=== PATIENT | female | born 1945 | race Caucasian/White ===

== ENCOUNTER 2022-10-11 18:40 | Inpatient (IN) | payer OTHER, MEDICAID ==
[~2022-10-11] VITALS: Ht 160 cm; Wt 98.0 kg
[2022-10-11 20:39] LABS: Basophils # (auto) 0 10 ^3/uL (0-0.2); Basophils % (auto) 0.7 % (0.0-2.0); Eosinophils # (auto) 0 10 ^3/uL (0-0.8); Eosinophils % (auto) 0.5 % (0.0-7.0); Hematocrit 39.3 % (36.0-46.0); Hemoglobin 13.4 g/dL (12.2-16.2); Lymphocytes # (auto) 0.7 10 ^3/uL (0.4-5.4); Lymphocytes % (auto) 14.6 % (10.0-50.0); Mean Corpuscular Hemoglobin 32.1 pg (28.0-32.0); Mean Corpuscular Hgb Conc. 34.1 g/dL (32.0-36.0); Mean Corpuscular Volume 94.2 fL (80.0-100.0); Monocytes # (auto) 0.7 10 ^3/uL (0-1.3); Monocytes % (auto) 14.8 % (0.0-12.0); Neutrophils # (auto) 3.2 10 ^3/uL (1.6-8.6); Neutrophils % (auto) 69.4 % (37.0-80.0); Nucleated Red Blood Cells % 0.1 %; Red Blood Cells 4.17 10^6/uL (4.0-5.20); Red Cell Distribution Width 13.6 % (11.8-14.3); White Blood Cell 4.6 10^3/uL (4.4-10.8)
[2022-10-11] MEDS ORDERED: HYDROcodone-ACET 10/325MG TAB PO ONE (20:45)
[2022-10-11] MEDS ORDERED: ONDANSETRON ODT 4 MG TAB PO ONE (20:45)
[2022-10-11 21:00] LABS: Albumin 3.4 g/dL (3.4-5.0); Calcium 8.1 mg/dL (8.5-10.1)
[2022-10-11 21:04] LABS: BUN/Creatinine Ratio 17.3; Bilirubin, Total 0.7 mg/dL (0.2-1.0); Total Protein 6.9 g/dL (6.4-8.2)
[2022-10-12] MEDS ORDERED: HYDROcodone-ACET 5/325MG TAB PO PRN (05:45)
[2022-10-12] MEDS ORDERED: TEMAZEPAM 15 MG CAP PO PRN (05:45)
[2022-10-12] MEDS ORDERED: ONDANSETRON HCL 4 MG/2 ML VIAL IV PRN (05:45)
[2022-10-12] MEDS ORDERED: ALBUTEROL SULF 2.5 MG/0.5ML(0.5%) NEB SOLN NEB PRN (05:45)
[2022-10-12] MEDS: MULTIPLE VITAMIN TAB PO SCH (10:18)
[2022-10-12] MEDS: ASCORBIC ACID 500 MG TAB PO SCH ×2 (10:18→22:38)
[2022-10-12] MEDS: ZINC SULFATE 220mg CAP or TAB PO SCH (10:18)
[2022-10-12] MEDS ORDERED: CHOLECALCIFEROL (VITD3) 2,000 UNIT CAP/TAB PO ONE (12:00)
[2022-10-12] MEDS: AZITHROMYCIN 500MG/ 250ML 250 ML IV SCH (13:27)
[2022-10-12] MEDS: ENOXAPARIN SOD 40 MG/0.4 ML SYRINGE SC SCH (13:46)
[2022-10-12] MEDS: DexAMETHasone SOD PHOS 10MG/1ML VIAL INJ IV SCH (13:46)
[2022-10-12] MEDS: cefTRIAXone 1GM/50ML D5W 50 ML IV SCH (15:14)
[2022-10-12 22:00] VITALS: BP 124/65
[2022-10-13 05:00] VITALS: BP 123/58
[2022-10-13 05:33] LABS: Basophils # (auto) 0 10 ^3/uL (0-0.2); Basophils % (auto) 0.2 % (0.0-2.0); Eosinophils # (auto) 0 10 ^3/uL (0-0.8); Hemoglobin 12.3 g/dL (12.2-16.2); Lymphocytes # (auto) 0.7 10 ^3/uL (0.4-5.4); Lymphocytes % (auto) 18.5 % (10.0-50.0); Mean Corpuscular Hemoglobin 31.6 pg (28.0-32.0); Mean Corpuscular Hgb Conc. 34.2 g/dL (32.0-36.0); Mean Corpuscular Volume 92.3 fL (80.0-100.0); Monocytes # (auto) 0.5 10 ^3/uL (0-1.3); Monocytes % (auto) 13.2 % (0.0-12.0); Neutrophils # (auto) 2.7 10 ^3/uL (1.6-8.6); Neutrophils % (auto) 68.1 % (37.0-80.0); Red Cell Distribution Width 13.2 % (11.8-14.3)
[2022-10-13 05:50] LABS: BUN/Creatinine Ratio 25.8; Calcium 8.1 mg/dL (8.5-10.1); Potassium 4.1 mmol/L (3.5-5.1)
[2022-10-13 05:53] LABS: Bilirubin, Total 0.5 mg/dL (0.2-1.0); Total Protein 6.5 g/dL (6.4-8.2)
[2022-10-13 09:00] VITALS: BP 113/68
[2022-10-13] MEDS: ENOXAPARIN SOD 40 MG/0.4 ML SYRINGE SC SCH (11:38)
[2022-10-13] MEDS: ZINC SULFATE 220mg CAP or TAB PO SCH (11:38)
[2022-10-13] MEDS: cefTRIAXone 1GM/50ML D5W 50 ML IV SCH (11:39)
[2022-10-13] MEDS: MULTIPLE VITAMIN TAB PO SCH (11:39)
[2022-10-13] MEDS: ASCORBIC ACID 500 MG TAB PO SCH ×2 (11:39→21:05)
[2022-10-13] MEDS: CHOLECALCIFEROL (VITD3) 2,000 UNIT CAP/TAB PO SCH (11:39)
[2022-10-13] MEDS: AZITHROMYCIN 500MG/ 250ML 250 ML IV SCH (11:39)
[2022-10-13] MEDS: DexAMETHasone SOD PHOS 10MG/1ML VIAL INJ IV SCH (11:40)
[2022-10-13 12:34] VITALS: BP 112/48
[2022-10-13 17:00] VITALS: BP 131/62
[2022-10-13 22:00] VITALS: BP 148/73
[2022-10-14 05:00] VITALS: BP 145/75
[2022-10-14 06:22] LABS: % Iron Saturation 18.7 % (15-50)
[2022-10-14] MEDS: ZINC SULFATE 220mg CAP or TAB PO SCH (08:37)
[2022-10-14] MEDS: CHOLECALCIFEROL (VITD3) 2,000 UNIT CAP/TAB PO SCH (08:37)
[2022-10-14] MEDS: ASCORBIC ACID 500 MG TAB PO SCH ×2 (08:38→21:25)
[2022-10-14] MEDS: MULTIPLE VITAMIN TAB PO SCH (08:38)
[2022-10-14] MEDS: ENOXAPARIN SOD 40 MG/0.4 ML SYRINGE SC SCH (08:39)
[2022-10-14] MEDS: cefTRIAXone 1GM/50ML D5W 50 ML IV SCH (08:39)
[2022-10-14] MEDS: DexAMETHasone SOD PHOS 10MG/1ML VIAL INJ IV SCH (08:39)
[2022-10-14] MEDS: AZITHROMYCIN 500MG/ 250ML 250 ML IV SCH (08:39)
[2022-10-14 08:48] VITALS: BP 136/71
[2022-10-14] MEDS ORDERED: ASCO500T11 PO (12:32)
[2022-10-14] MEDS ORDERED: DEXA6TAB6 PO ×2 (12:33)
[2022-10-14] MEDS ORDERED: ZINC220C10 PO (12:33)
[2022-10-14] MEDS ORDERED: CHOL1CAP47 PO (12:33)
[2022-10-14 13:00] VITALS: BP 128/80
[2022-10-14 17:00] VITALS: BP 131/75
[2022-10-14 22:00] VITALS: BP 107/60
[2022-10-15] MEDS: ACETAMINOPHEN 325 MG TAB PO PRN (00:17)
[2022-10-15 05:00] VITALS: BP 121/55
[2022-10-15 09:00] VITALS: BP 127/80
[2022-10-15] MEDS: ZINC SULFATE 220mg CAP or TAB PO SCH (09:31)
[2022-10-15] MEDS: cefTRIAXone 1GM/50ML D5W 50 ML IV SCH (09:31)
[2022-10-15] MEDS: DexAMETHasone SOD PHOS 10MG/1ML VIAL INJ IV SCH (09:31)
[2022-10-15] MEDS: ASCORBIC ACID 500 MG TAB PO SCH ×2 (09:32→21:59)
[2022-10-15] MEDS: AZITHROMYCIN 500MG/ 250ML 250 ML IV SCH (09:32)
[2022-10-15] MEDS: MULTIPLE VITAMIN TAB PO SCH (09:32)
[2022-10-15] MEDS: CHOLECALCIFEROL (VITD3) 2,000 UNIT CAP/TAB PO SCH (09:32)
[2022-10-15 11:36] LABS: Hepatitis A Ab IgM Negative
[2022-10-15 11:37] LABS: Hepatitis B Core IgM Negative
[2022-10-15 11:38] LABS: Hepatitis C Antibody Negative (Negative)
[2022-10-15 11:42] LABS: Hepatitis C Antibody Negative (Negative)
[2022-10-15 13:00] VITALS: BP 126/74
[2022-10-15 17:09] VITALS: BP 141/85
[2022-10-15 22:00] VITALS: BP 146/80
[2022-10-16 05:00] VITALS: BP 136/72
[2022-10-16] MEDS: ZINC SULFATE 220mg CAP or TAB PO SCH (08:23)
[2022-10-16] MEDS: MULTIPLE VITAMIN TAB PO SCH (08:23)
[2022-10-16] MEDS: CHOLECALCIFEROL (VITD3) 2,000 UNIT CAP/TAB PO SCH (08:23)
[2022-10-16] MEDS: ASCORBIC ACID 500 MG TAB PO SCH ×2 (08:23→22:17)
[2022-10-16] MEDS: AZITHROMYCIN 500MG/ 250ML 250 ML IV SCH (08:24)
[2022-10-16] MEDS: DexAMETHasone SOD PHOS 10MG/1ML VIAL INJ IV SCH (08:24)
[2022-10-16] MEDS: cefTRIAXone 1GM/50ML D5W 50 ML IV SCH (08:25)
[2022-10-16 09:00] VITALS: BP 121/77
[2022-10-16 16:34] VITALS: BP 145/59
[2022-10-16 22:00] VITALS: BP 120/71
[2022-10-17 05:00] VITALS: BP 160/85
[2022-10-17 08:00] VITALS: BP_SYST 124; BP_DIAS 77; BP_DIAS 79
[2022-10-17] MEDS: AZITHROMYCIN 500MG/ 250ML 250 ML IV SCH (10:00)
[2022-10-17] MEDS: CHOLECALCIFEROL (VITD3) 2,000 UNIT CAP/TAB PO SCH (10:33)
[2022-10-17] MEDS: MULTIPLE VITAMIN TAB PO SCH (10:33)
[2022-10-17] MEDS: ASCORBIC ACID 500 MG TAB PO SCH ×2 (10:33→21:11)
[2022-10-17] MEDS: ZINC SULFATE 220mg CAP or TAB PO SCH (10:34)
[2022-10-17] MEDS: DexAMETHasone SOD PHOS 10MG/1ML VIAL INJ IV SCH (10:34)
[2022-10-17] MEDS: cefTRIAXone 1GM/50ML D5W 50 ML IV SCH (10:35)
[2022-10-17 12:00] VITALS: BP 132/75
[2022-10-17 16:00] VITALS: BP 137/80
[2022-10-17 20:00] VITALS: BP 114/72
[2022-10-17 22:00] VITALS: BP 114/72
[2022-10-18] VITALS (7 sets, daily range): BP systolic 121–149; BP diastolic 68–84
[2022-10-18 06:46] LABS: Basophils # (auto) 0 10 ^3/uL (0-0.2); Basophils % (auto) 0.3 % (0.0-2.0); Eosinophils # (auto) 0 10 ^3/uL (0-0.8); Eosinophils % (auto) 0.6 % (0.0-7.0); Hematocrit 39.1 % (36.0-46.0); Hemoglobin 13.8 g/dL (12.2-16.2); Lymphocytes # (auto) 1.3 10 ^3/uL (0.4-5.4); Lymphocytes % (auto) 15.7 % (10.0-50.0); Mean Corpuscular Hemoglobin 31.8 pg (28.0-32.0); Mean Corpuscular Hgb Conc. 35.3 g/dL (32.0-36.0); Mean Corpuscular Volume 90.2 fL (80.0-100.0); Monocytes % (auto) 12.7 % (0.0-12.0); Neutrophils # (auto) 5.7 10 ^3/uL (1.6-8.6); Neutrophils % (auto) 70.7 % (37.0-80.0); Nucleated Red Blood Cells % 0.1 %; Red Blood Cells 4.34 10^6/uL (4.0-5.20); Red Cell Distribution Width 13.4 % (11.8-14.3)
[2022-10-18 07:00] LABS: BUN/Creatinine Ratio 36.8; Calcium 8.5 mg/dL (8.5-10.1); Potassium 4.5 mmol/L (3.5-5.1)
[2022-10-18] MEDS: CHOLECALCIFEROL (VITD3) 2,000 UNIT CAP/TAB PO SCH (09:46)
[2022-10-18] MEDS: ASCORBIC ACID 500 MG TAB PO SCH ×2 (09:46→21:37)
[2022-10-18] MEDS: MULTIPLE VITAMIN TAB PO SCH (09:46)
[2022-10-18] MEDS: DexAMETHasone SOD PHOS 10MG/1ML VIAL INJ IV SCH (09:46)
[2022-10-18] MEDS: ZINC SULFATE 220mg CAP or TAB PO SCH (09:46)
[2022-10-18] MEDS: cefTRIAXone 1GM/50ML D5W 50 ML IV SCH (09:47)
[2022-10-18] MEDS: AZITHROMYCIN 500MG/ 250ML 250 ML IV SCH (11:01)
[2022-10-19] VITALS (7 sets, daily range): BP systolic 111–132; BP diastolic 60–88
[2022-10-19] MEDS: DexAMETHasone SOD PHOS 10MG/1ML VIAL INJ IV SCH (10:11)
[2022-10-19] MEDS: cefTRIAXone 1GM/50ML D5W 50 ML IV SCH (10:11)
[2022-10-19] MEDS: ZINC SULFATE 220mg CAP or TAB PO SCH (10:12)
[2022-10-19] MEDS: CHOLECALCIFEROL (VITD3) 2,000 UNIT CAP/TAB PO SCH (10:12)
[2022-10-19] MEDS: ASCORBIC ACID 500 MG TAB PO SCH ×2 (10:12→21:57)
[2022-10-19] MEDS: MULTIPLE VITAMIN TAB PO SCH (10:12)
[2022-10-20 05:00] VITALS: BP 148/88
[2022-10-20 09:00] VITALS: BP 119/66
[2022-10-20] MEDS: DexAMETHasone SOD PHOS 10MG/1ML VIAL INJ IV SCH (10:06)
[2022-10-20] MEDS: ZINC SULFATE 220mg CAP or TAB PO SCH (10:07)
[2022-10-20] MEDS: MULTIPLE VITAMIN TAB PO SCH (10:07)
[2022-10-20] MEDS: CHOLECALCIFEROL (VITD3) 2,000 UNIT CAP/TAB PO SCH (10:08)
[2022-10-20] MEDS: ASCORBIC ACID 500 MG TAB PO SCH ×2 (10:08→21:18)
[2022-10-20 12:59] VITALS: BP 127/71
[2022-10-20 16:22] VITALS: BP 123/69
[2022-10-20] MEDS: ACETAMINOPHEN 325 MG TAB PO PRN (21:18)
[2022-10-20 22:21] VITALS: BP 122/69
[2022-10-21 04:57] VITALS: BP 135/76
[2022-10-21 08:31] VITALS: BP 140/92
[2022-10-21] MEDS: ZINC SULFATE 220mg CAP or TAB PO SCH (09:36)
[2022-10-21] MEDS: CHOLECALCIFEROL (VITD3) 2,000 UNIT CAP/TAB PO SCH (09:36)
[2022-10-21] MEDS: DexAMETHasone SOD PHOS 10MG/1ML VIAL INJ IV SCH (09:37)
[2022-10-21] MEDS: MULTIPLE VITAMIN TAB PO SCH (09:38)
[2022-10-21] MEDS: ASCORBIC ACID 500 MG TAB PO SCH ×2 (09:38→21:16)
[2022-10-21 13:09] VITALS: BP 138/71
[2022-10-21 16:36] VITALS: BP 120/69
[2022-10-21 20:00] VITALS: BP 124/72
[2022-10-21 22:00] VITALS: BP 124/72
[2022-10-22 05:00] VITALS: BP 125/70
[2022-10-22 08:20] VITALS: BP 138/87
[2022-10-22 08:27] VITALS: BP 138/87
[2022-10-22] MEDS: DexAMETHasone SOD PHOS 10MG/1ML VIAL INJ IV SCH (10:15)
[2022-10-22] MEDS: ASCORBIC ACID 500 MG TAB PO SCH ×2 (10:16→22:22)
[2022-10-22] MEDS: ZINC SULFATE 220mg CAP or TAB PO SCH (10:16)
[2022-10-22] MEDS: MULTIPLE VITAMIN TAB PO SCH (10:16)
[2022-10-22] MEDS: CHOLECALCIFEROL (VITD3) 2,000 UNIT CAP/TAB PO SCH (10:16)
[2022-10-22 13:01] VITALS: BP 137/75
[2022-10-22 16:35] VITALS: BP 127/75
[2022-10-22 22:00] VITALS: BP 122/74
[2022-10-23 05:00] VITALS: BP 131/69
[2022-10-23 08:00] VITALS: BP 130/73
[2022-10-23] MEDS: MULTIPLE VITAMIN TAB PO SCH (10:48)
[2022-10-23] MEDS: DexAMETHasone SOD PHOS 10MG/1ML VIAL INJ IV SCH (10:48)
[2022-10-23] MEDS: CHOLECALCIFEROL (VITD3) 2,000 UNIT CAP/TAB PO SCH (10:48)
[2022-10-23] MEDS: ASCORBIC ACID 500 MG TAB PO SCH ×2 (10:48→22:14)
[2022-10-23] MEDS: ZINC SULFATE 220mg CAP or TAB PO SCH (10:49)
[2022-10-23 12:37] VITALS: BP 122/69
[2022-10-23 17:01] VITALS: BP 129/73
[2022-10-23 22:00] VITALS: BP 132/86
[2022-10-24 05:00] VITALS: BP 108/55
[2022-10-24 08:00] VITALS: BP 104/70
[2022-10-24 09:00] VITALS: BP 104/70
[2022-10-24] MEDS: CHOLECALCIFEROL (VITD3) 2,000 UNIT CAP/TAB PO SCH (09:22)
[2022-10-24] MEDS: DexAMETHasone SOD PHOS 10MG/1ML VIAL INJ IV SCH (09:22)
[2022-10-24] MEDS: ASCORBIC ACID 500 MG TAB PO SCH ×2 (09:23→21:26)
[2022-10-24] MEDS: MULTIPLE VITAMIN TAB PO SCH (09:23)
[2022-10-24] MEDS: ZINC SULFATE 220mg CAP or TAB PO SCH (09:23)
[2022-10-24 13:00] VITALS: BP 115/69
[2022-10-24 17:00] VITALS: BP 127/76
[2022-10-24 22:00] VITALS: BP 121/53
[2022-10-25 05:00] VITALS: BP 120/70
[2022-10-25 08:00] VITALS: BP 104/70
[2022-10-25] MEDS: ZINC SULFATE 220mg CAP or TAB PO SCH (08:52)
[2022-10-25] MEDS: CHOLECALCIFEROL (VITD3) 2,000 UNIT CAP/TAB PO SCH (08:52)
[2022-10-25] MEDS: MULTIPLE VITAMIN TAB PO SCH (08:52)
[2022-10-25] MEDS: ASCORBIC ACID 500 MG TAB PO SCH ×2 (08:53→21:32)
[2022-10-25] MEDS: DexAMETHasone SOD PHOS 10MG/1ML VIAL INJ IV SCH (08:53)
[2022-10-25 09:00] VITALS: BP 141/89
[2022-10-25 12:35] VITALS: BP 129/70
[2022-10-25 16:32] VITALS: BP 150/83
[2022-10-25 22:00] VITALS: BP 130/75
[2022-10-26 05:00] VITALS: BP 124/64
[2022-10-26] MEDS: ZINC SULFATE 220mg CAP or TAB PO SCH (08:59)
[2022-10-26] MEDS: CHOLECALCIFEROL (VITD3) 2,000 UNIT CAP/TAB PO SCH (08:59)
[2022-10-26] MEDS: ASCORBIC ACID 500 MG TAB PO SCH (09:00)
[2022-10-26] MEDS: MULTIPLE VITAMIN TAB PO SCH (09:00)
[2022-10-26] MEDS: DexAMETHasone SOD PHOS 10MG/1ML VIAL INJ IV SCH (09:00)
[2022-10-26 09:07] VITALS: BP 142/83
[2022-10-26 12:48] VITALS: BP 130/81
== END 2022-10-26 14:10 | disposition home or self-care (01) | DRG 177 ==
LOC: EDBD 18:40 → ER 18:42 → OVERFLOW 10-12 05:34 → CENTRAL 10-12 18:04
PROVIDERS: ADMIT Nurse Practitioner; ATTEND Internal Medicine Geriatric Medicine
DX: U07.1 COVID-19 (principal); J12.82 Pneumonia due to coronavirus disease 2019; J96.01 Acute respiratory failure with hypoxia; N17.9 Acute kidney failure, unspecified; J98.11 Atelectasis; Z68.41 Body mass index [BMI] 40.0-44.9, adult; K74.60 Unspecified cirrhosis of liver; G89.4 Chronic pain syndrome; N18.9 Chronic kidney disease, unspecified; E83.51 Hypocalcemia; D69.6 Thrombocytopenia, unspecified; K80.20 Calculus of gallbladder without cholecystitis without obstruction; Z78.9 Other specified health status; E66.01 Morbid (severe) obesity due to excess calories; R74.8 Abnormal levels of other serum enzymes; J06.9 Acute upper respiratory infection, unspecified
CPT/HCPCS: 36415; 70450; 71250; 71275; 74176; 80048; 80053; 80074; 82140; 82728; 83540; 83550; 84484; 85025; 85379; 85610; 86038; 86141; 86803; 87340; 87426; 87804; 93005; 96365; 97110; 97116; 97163; 97530; G0378; J0696; J1100; Q0162

== ENCOUNTER 2025-07-15 11:19 | Inpatient (IN) | payer MEDICARE, MEDICAID ==
[~2025-07-15] VITALS: Ht 162.6 cm; Wt 123.0 kg
[~2025-07-15 11:19] MED LIST: ASCO500T11 PO; CHOL1CAP47 PO; ZINC220C10 PO
--- NOTE | 2025-07-15 12:00 | ED.PDOC ---
General HPI Comments 80 y/o F, BIBA, presents to the ED for CC of flank pain. Patient states, she began to experience right-sided "shooting" flank pain sudden onset, today (07/15/25). Patient relays, that she may have accidently hit something but is unsure. Patient denies recent lifting, fall, fever, frequency, urgency, or hematuria. Chief Complaint: Flank Pain Time Seen by MD: 11:50 Reviewed notes: Nurses Notes, Business Intelligence Engineer Notes, Medications, Allergies Allergies: Coded Allergies: Penicillins (Verified Allergy, Severe, 07/15/25) No Known Drug Allergy (Verified Allergy, Unknown, 10/11/22) Home Meds Active Scripts Zinc Sulfate (Zinc) 220 Mg Cap, 220 MG PO Q24H for 15 Days, #15 CAP Prov:ELVA BOYCE MD 10/14/22 Cholecalciferol (Vitamin D3 Super Strength) 2,000 Unit Cap, 2000 UNIT PO Q24H for 15 Days, #15 CAP Prov:ELVA BOYCE MD 10/14/22 Ascorbic Acid (VITAMIN C TABLET) 500 Mg Tb, 1 TAB PO BID, #30 TAB Prov:ELVA BOYCE MD 10/14/22 Information Source: Patient, Emergency Med Personnel Mode of Arrival: EMS Severity: Moderate Timing: Minutes Duration: Since onset Prehospital treatment: None Onset: Spontaneous Location: (R) Flank Modifying factors: None associated signs and symptoms: Flank Pain, Back Pain Past Medical History PAST MEDICAL HISTORY: Denies Surgical History: Denies all surgeries MEDICAL PSYCHOTHERAPIST History: Denies all MEDICAL PSYCHOTHERAPIST Hx Family History Family History: Reviewed,noncontributory to illness Social History Smoker: Non-Smoker Alcohol: Denies ETOH Use Drugs: Denies Drug Use Lives In: Home Constitutional: denies: chills, diaphoresis, fatigue, fever, malaise, sweats, weakness, others EENTM: denies: blurred vision, double vision, ear bleeding, ear discharge, ear drainage, ear pain, ear ringing, eye pain, eye redness, hearing loss, mouth pain, mouth swelling, nasal discharge, nose bleeding, nose congestion, nose pain, photophobia, tearing, throat pain, throat swelling, voice changes, others Respiratory: denies: cough, hemoptysis, orthopnea, SOB at rest, shortness of breath, SOB with excertion, stridor, wheezing, others Cardiovascular: denies: chest pain, dizzy spells, diaphoresis, Dyspnea on exertion, edema, irregular heart beat, left arm pain, lightheadedness, palpitations, PND, syncope, others Gastrointestinal: denies: abdomen distended, abdominal pain, blood streaked bowels, constipated, diarrhea, dysphagia, difficulty swallowing, hematemesis, melena, nausea, poor appetite, poor fluid intake, rectal bleeding, rectal pain, vomiting, others Genitourinary: reports: flank pain; denies: abnormal vagina bleeding, burning, dyspareunia, dysuria, frequency, hematuria, incontinence, pain, , vagina discharge, urgency, others Neurological: denies: dizziness, fainting, headache, left sided numbness, left sided weakness, numbness, paresthesia, pre-existing deficit, right sided numbness, right sided weakness, seizure, speech problems, tingling, tremors, weakness, others Musculoskeletal: reports: back pain; denies: gout, joint pain, joint swelling, muscle pain, muscle stiffness, neck pain, others Integumetry: denies: bruises, change in color, change in hair/nails, dryness, l aceration, lesions, lumps, rash, wounds, others Allergic/Immunocompromised: denies: Difficulty Healing, Frequent Infections, Hives, Itching, others Hematologic/Lymphatic: denies: anemia, blood clots, easy bleeding, easy bruising, swollen glands, others Endocrine: denies: excessive hunger, excessive sweating, excessive thirst, excessive urination, flushing, intolerance to cold, intolerance to heat, unexplained weight gain, unexplained weight loss, others Psychiatric: denies: anxiety, bipolar disorder, depression, hopeless, panic disorder, schizophrenia, sleepless, suicidal, others All Other Systems: Reviewed and Negative Physical Exam General Appearance: No Apparent Distress, Normal HEENT: Normal ENT Inspection, Pharynx Normal Neck: Full Range of Motion, Non-Tender, Normal, Normal Inspection Respiratory: Chest Non-Tender, Lungs Clear, No Accessory Muscle Use, No Respiratory Distress, Normal Breath Sounds Cardiovascular: No Edema, No Murmur, No Gallop, Normal Peripheral Pulses, Regular Rate/Rhythm Breast Exam: Deferred Gastrointestinal: No Organomegaly, Non Tender, No Pulsatile Mass, Normal Bowel Sounds, Soft Genitalia: Deferred Pelvic: Deferred Rectal: Deferred Extremities: No calf tenderness, Normal capillary refill, Normal inspection, Normal range of motion, Non-tender, No pedal edema Musculoskeletal : Location: Right Extremity Location: Back (thoracic spine ) Apperance: Normal, Tenderness: Mild Neurologic: Alert, brake machine operator II-XII nml as Tested, No Motor Deficits, Normal Affect, Normal Mood, No Sensory Deficits Cerebellar Function: Normal Reflexes: Normal Skin: Dry, Normal Color, Warm Lymphatic: No Adenopathy Was a procedure done? Was a procedure done?: No Differential Diagnosis Kidney stone (Female): Musculoskeletal pain, Urinary obstruction, Urolithiasis X-Ray, Labs, Meds, VS Vital Signs Date Time Temp Pulse Resp B/P (MAP) Pulse Ox O2 Delivery O2 Flow Rate FiO2 07/15/25 17:00 99.8 69 20 161/78 (105) 97 99.8 07/15/25 12:39 97 16 97 Room Air 07/15/25 12:39 98.7 72 16 114/61 (78) 97 98.7 07/15/25 11:24 97.8 71 18 147/53 96 97.8 Lab Test 07/15/25 12:56 Range/Units White Blood Count 5.5 4.4-10.8 10^3/uL Red Blood Count 4.02 4.0-5.20 10^6/uL Hemoglobin 13.2 12.2-16.2 g/dL Hematocrit 38.9 36.0-46.0 % Mean Corpuscular Volume 96.8 80.0-100.0 fL Mean Corpuscular Hemoglobin 32.8 H 28.0-32.0 pg Mean Corpuscular Hemoglobin Concent 33.9 32.0-36.0 g/dL Red Cell Distribution Width 14.3 11.8-14.3 % Platelet Count 104 L 140-450 10^3/uL Mean Platelet Volume 8.9 6.9-10.8 fL Neutrophils (%) (Auto) 79.4 37.0-80.0 % Lymphocytes (%) (Auto) 11.8 10.0-50.0 % Monocytes (%) (Auto) 7.1 0.0-12.0 % Eosinophils (%) (Auto) 0.6 0.0-7.0 % Basophils (%) (Auto) 1.1 0.0-2.0 % Neutrophils # (Auto) 4.4 1.6-8.6 10 ^3/uL Lymphocytes # (Auto) 0.7 0.4-5.4 10 ^3/uL Monocytes # (Auto) 0.4 0-1.3 10 ^3/uL Eosinophils # (Auto) 0 0-0.8 10 ^3/uL Basophils # (Auto) 0.1 0-0.2 10 ^3/uL Nucleated Red Blood Cells 0.0 % Sodium Level 143 136-145 mmol/L Potassium Level 4.3 3.5-5.1 mmol/L Chloride Level 106 98-107 mmol/L Carbon Dioxide Level 30 20-31 mmol/L Anion Gap 7 5-15 Blood Urea Nitrogen 15 9-23 mg/dL Creatinine 0.87 0.550-1.02 mg/dL Glomerular Filtration Rate Calc 68 >90 mL/min BUN/Creatinine Ratio 17.2 10.0-20.0 Serum Glucose 127 H 74-106 mg/dL Calcium Level 9.3 8.7-10.4 mg/dL Current Medications Medications (Trade) Dose Ordered Sig/Jake Route Start Time Stop Time Status Last Admin Acetaminophen/ Hydrocodone Bitart (Bovill 5/325MG Tab) 1 tab ONCE ONCE PO 07/15/25 12:15 07/15/25 12:16 DC 07/15/25 12:59 [place] [id number] Ph: [phone] DIAGNOSTIC IMAGING Diagnostic Imaging Report : [id number] Signed PATIENT: ESTUARDO PEREZ ACCT: [id number] UNIT: [id number] : 1945 LOC: ER ROOM / BED: / AGE / SEX: 80 / F ADM STATUS: REG ER SERVICE 1207 ORDERING PHYSICIAN: KENDRA JAMA MD PROCEDURE(s): ABPL - CT AB PEL WO CON-NO ORAL OR IV REASON: right flank pain ORDER NUMBER(s): [id number], ACCESSION NUMBER(s): [id number] Exam: CT CT AB PEL WO CON-NO ORAL OR IV History: right flank pain Comparison Study: None TECHNIQUE: Multidetector CT of the abdomen was performed from lung bases to pubic symphysis. Imaging was performed without IV contrast. Axial, coronal and sagittal multiplanar reformats were obtained from the axial data set by the technologist. Radiation Dose Information: CT Dose: CTDI volume is 25.8 mGy. Dose-length product is 1241 mGy*cm FINDINGS: Evaluation of solid organs is limited due to lack of intravenous contrast use. Findings: Lung Bases: No acute or significant lung base finding. Normal heart size. No pleural or pericardial effusion. Liver: Liver is nodular in contour. No focal lesions. Gallbladder and Biliary Tree: Cholelithiasis. Spleen: Unremarkable Pancreas: The pancreas is grossly normal in appearance. Adrenal Glands: Unremarkable Kidneys: Bilateral renal cysts. No evidence of hydronephrosis or renal calculi. Bladder: Grossly unremarkable for degree of distention. Bowel: The stomach is grossly normal in appearance. Small bowel and colon are normal in caliber and distribution. The appendix is not visualized; however, no secondary findings of acute appendicitis identified. Ascites: Absent Lymphadenopathy: No mesenteric, retroperitoneal or periportal lymphadenopathy. Abdominal Wall and Mesentery: Unremarkable. Vasculature: The visualized abdominal aorta is normal in size and caliber. Evaluation of abdominal and pelvic vessels is limited due to lack of intravenous contrast. Pelvic Organs: Unremarkable Musculoskeletal: No aggressive focal bony lesions, acute fractures or dislocation. Soft tissues: Unremarkable IMPRESSION: 1. Cholelithiasis 2. Bilateral renal cysts 3. Radiation optimization: All CT scans at this facility use at least one of these dose optimization techniques: automated exposure control mA and/or kV adjustment per patient size (includes targeted exams where dose is matched to clinical indication) or iterative reconstruction. ATED BY: LING WARREN MD DICTATED DATE/TIME: 07/15/25 1303 SIGNED BY: LING WARREN MD SIGNED DATE/TIME: 07/15/25 1303 CC: Time of 1ST Reevaluation: 12:10 Reevaluation 1ST: Unchanged Patient Education/Counseling: Diagnosis, Treatment Family Education/Counseling: No Family Present Comments This is a patient who presents with right flank pain right upper quadrant pain. She has cholelithiasis. There was no evidence of cholecystitis or obstruction. However patient's pain is uncontrolled and she an elderly who lives alone and she does not feel comfortable going home patient is unable to keep anything down by mouth. Patient will be admitted for further symptomatic treatment as well as evaluation treatment for the biliary colic due to cholelithiasis SEPSIS Sepsis Screen Date sepsis recognized/suspect: Jul 15, 2025 Time Sepsis recognized/suspect: 1126 Recent Procedure: No On Antibiotic Therapy: No Respiratory Rate >20: No Heart Rate >90: No Temp<36 C (96.8 F) or >38.3 C: No SBP <90 or MAP <65 mmHG: No New Acute Mental Status Change: No Is the patient on CPAP, BIPAP,: No Physician Orders Urinalysis (07/15/25 12:07) Ct Ab Pel Wo Con-No Oral Or Iv (07/15/25 12:07) Vital Signs Date Time Temp Pulse Resp B/P (MAP) Pulse Ox O2 Delivery O2 Flow Rate FiO2 07/15/25 17:00 99.8 69 20 161/78 (105) 97 99.8 07/15/25 12:39 97 16 97 Room Air 07/15/25 12:39 98.7 72 16 114/61 (78) 97 98.7 07/15/25 11:24 97.8 71 18 147/53 96 97.8 Laboratory Tests Test 07/15/25 12:56 White Blood Count 5.5 10^3/uL (4.4-10.8) Medications Medications Dose Ordered Sig/Jake Route Start Time Stop Time Status Last Admin Dose Admin Acetaminophen/ Hydrocodone Bitart 1 tab ONCE ONCE PO 07/15/25 12:15 07/15/25 12:16 DC 07/15/25 12:59 Departure 1 Departure Time of Disposition: 17:54 Impression: Primary Impression: Intractable abdominal pain Additional Impressions: Biliary colic Cholelithiasis Disposition: ADMITTED INPATIENT Admit to: Med Surg Condition: Stable Discharged With: Self Critical Care Note Critical Care Time?: No Stability Stability form required: No Heart Score Heart Score: Heart Score Response (Comments) Value History N/A 0 EKG N/A 0 Age N/A 0 Risk Factors N/A 0 Troponin N/A 0 Total 0 I personally scribed for KENRDA JAMA MD ([email or web address]) on 07/15/25 at 12:00. Electronically submitted by Juanita Jin ([email or web address]). I personally scribed for KENDRA JAMA MD ([email or web address]) on 07/15/25 at 13:13. Electronically submitted by Juanita Jin ([email or web address]). KENDRA JAMA MD Jul 15, 2025 12:00
[2025-07-15] MEDS: HYDROcodone-ACET 5/325MG TAB PO ONE ×2 (12:59→18:34)
--- NOTE | 2025-07-15 13:05 | DVH ---
Exam: CT CT AB PEL WO CON-NO ORAL OR IV History: right flank pain Comparison Study: None TECHNIQUE: Multidetector CT of the abdomen was performed from lung bases to pubic symphysis. Imaging was performed without IV contrast. Axial, coronal and sagittal multiplanar reformats were obtained from the axial data set by the technologist. Radiation Dose Information: CT Dose: CTDI volume is 25.8 mGy. Dose-length product is 1241 mGy*cm FINDINGS: Evaluation of solid organs is limited due to lack of intravenous contrast use. Findings: Lung Bases: No acute or significant lung base finding. Normal heart size. No pleural or pericardial effusion. Liver: Liver is nodular in contour. No focal lesions. Gallbladder and Biliary Tree: Cholelithiasis. Spleen: Unremarkable Pancreas: The pancreas is grossly normal in appearance. Adrenal Glands: Unremarkable Kidneys: Bilateral renal cysts. No evidence of hydronephrosis or renal calculi. Bladder: Grossly unremarkable for degree of distention. Bowel: The stomach is grossly normal in appearance. Small bowel and colon are normal in caliber and distribution. The appendix is not visualized; however, no secondary findings of acute appendicitis identified. Ascites: Absent Lymphadenopathy: No mesenteric, retroperitoneal or periportal lymphadenopathy. Abdominal Wall and Mesentery: Unremarkable. Vasculature: The visualized abdominal aorta is normal in size and caliber. Evaluation of abdominal and pelvic vessels is limited due to lack of intravenous contrast. Pelvic Organs: Unremarkable Musculoskeletal: No aggressive focal bony lesions, acute fractures or dislocation. Soft tissues: Unremarkable IMPRESSION: 1. Cholelithiasis 2. Bilateral renal cysts 3. Radiation optimization: All CT scans at this facility use at least one of these dose optimization techniques: automated exposure control mA and/or kV adjustment per patient size (includes targeted exams where dose is matched to clinical indication) or iterative reconstruction.
[2025-07-15 13:13] LABS: Hematocrit 38.9 % (36.0-46.0); Hemoglobin 13.2 g/dL (12.2-16.2); Mean Corpuscular Hemoglobin 32.8 pg (28.0-32.0); Mean Corpuscular Volume 96.8 fL (80.0-100.0); Nucleated Red Blood Cells % 0.0 %
[2025-07-15 13:20] LABS: Chloride 106 mmol/L (98-107); Potassium 4.3 mmol/L (3.5-5.1); Sodium 143 mmol/L (136-145)
[2025-07-15 13:21] LABS: Anion Gap 7 (5-15); Calcium 9.3 mg/dL (8.7-10.4); Carbon Dioxide 30 mmol/L (20-31)
[2025-07-15 13:26] LABS: BUN/Creatinine Ratio 17.2 (10.0-20.0); Blood Urea Nitrogen 15 mg/dL (9-23)
[2025-07-15 14:07] LABS: Glucose 127 mg/dL (74-106)
[2025-07-15] MEDS: HYDROcodone-ACET 5/325MG TAB ONE ×2 (18:10→18:29)
[2025-07-15] MEDS ORDERED: APIX5TAB PO (18:10)
--- NOTE | 2025-07-15 18:13 | DVHHP2 ---
History of Present Illness History of Present Illness Martine Dodd is a 80-year-old female presenting to the clinic with complaints of right-sided flank pain that started on the . The patient describes right- sided flank pain that began on the . She is unsure if she might have hit something that could have caused the pain. She denies any chest pain, fever, or chills. Review of Systems Constitutional: No: Fever, Chills, Sweats, Weakness, Malaise, Other Gastrointestinal: Nausea, Abdominal Pain Genitourinary: No Dysuria, No Frequency, No Incontinence, No Hematuria, No Retention, No Other Skin: No: Rash, Lesions, Jaundice, Bruising, Other Allergies: Coded Allergies: Penicillins (Verified Allergy, Severe, 07/15/25) No Known Drug Allergy (Verified Allergy, Unknown, 10/11/22) Medications Current Medications Medications Dose Ordered Sig/Jake Route Start Time Stop Time Status Last Admin Dose Admin Sodium Chloride 1,000 ml @ 60 mls/hr [id number] IV 07/15/25 18:15 UNV Temazepam 15 mg QHSP PRN PO 07/15/25 18:15 UNV Ondansetron HCl 4 mg Q4HP PRN IV 07/15/25 18:15 UNV Acetaminophen 650 mg Q6HP PRN PO 07/15/25 18:15 UNV Morphine Sulfate 2 mg Q4HPRN PRN IV 07/15/25 18:15 UNV Enoxaparin Sodium 40 mg DAILY SC 07/15/25 18:15 UNV Nitroglycerin 0.4 mg Q5MINP PRN SL 07/15/25 18:15 UNV Morphine Sulfate 2 mg Q30M PRN IV 07/15/25 18:15 UNV Apixaban 5 mg BID PO 07/15/25 22:00 UNV Exam Vital Signs Vital Signs Date Time Temp Pulse Resp B/P (MAP) Pulse Ox O2 Delivery O2 Flow Rate FiO2 07/15/25 17:00 99.8 69 20 161/78 (105) 97 99.8 07/15/25 12:39 Room Air General Appearance: Alert, Oriented X3, Cooperative Cardiovascular: Regular rate, Normal S1, Normal S2, No murmurs Abdominal: Normal bowel sounds (severe tenderness noted to abdomen ) Extremities: No clubbing Skin: No rashes Labs/Xrays Labs Test 07/15/25 12:56 Range/Units White Blood Count 5.5 4.4-10.8 10^3/uL Red Blood Count 4.02 4.0-5.20 10^6/uL Hemoglobin 13.2 12.2-16.2 g/dL Hematocrit 38.9 36.0-46.0 % Mean Corpuscular Volume 96.8 80.0-100.0 fL Mean Corpuscular Hemoglobin 32.8 H 28.0-32.0 pg Mean Corpuscular Hemoglobin Concent 33.9 32.0-36.0 g/dL Red Cell Distribution Width 14.3 11.8-14.3 % Platelet Count 104 L 140-450 10^3/uL Mean Platelet Volume 8.9 6.9-10.8 fL Neutrophils (%) (Auto) 79.4 37.0-80.0 % Lymphocytes (%) (Auto) 11.8 10.0-50.0 % Monocytes (%) (Auto) 7.1 0.0-12.0 % Eosinophils (%) (Auto) 0.6 0.0-7.0 % Basophils (%) (Auto) 1.1 0.0-2.0 % Neutrophils # (Auto) 4.4 1.6-8.6 10 ^3/uL Lymphocytes # (Auto) 0.7 0.4-5.4 10 ^3/uL Monocytes # (Auto) 0.4 0-1.3 10 ^3/uL Eosinophils # (Auto) 0 0-0.8 10 ^3/uL Basophils # (Auto) 0.1 0-0.2 10 ^3/uL Nucleated Red Blood Cells 0.0 % Sodium Level 143 136-145 mmol/L Potassium Level 4.3 3.5-5.1 mmol/L Chloride Level 106 98-107 mmol/L Carbon Dioxide Level 30 20-31 mmol/L Anion Gap 7 5-15 Blood Urea Nitrogen 15 9-23 mg/dL Creatinine 0.87 0.550-1.02 mg/dL Glomerular Filtration Rate Calc 68 >90 mL/min BUN/Creatinine Ratio 17.2 10.0-20.0 Serum Glucose 127 H 74-106 mg/dL Calcium Level 9.3 8.7-10.4 mg/dL SEPSIS Sepsis Screen Date sepsis recognized/suspect: Jul 15, 2025 Time Sepsis recognized/suspect: 1126 Recent Procedure: No On Antibiotic Therapy: No Respiratory Rate >20: No Heart Rate >90: No Temp<36 C (96.8 F) or >38.3 C: No SBP <90 or MAP <65 mmHG: No New Acute Mental Status Change: No Is the patient on CPAP, BIPAP,: No Physician Orders Urinalysis (07/15/25 12:07) Ct Ab Pel Wo Con-No Oral Or Iv (07/15/25 12:07) Admit (07/15/25 18:07) Sodium Chloride 0.9% (07/15/25 18:15) Temazepam (Restoril) (07/15/25 18:15) Ondansetron Hcl (Zofran) (07/15/25 18:15) Condition: Fair (07/15/25 18:07) Acetaminophen Tablet (Tylenol Tablet) (07/15/25 18:15) Clear Liq Diet (07/15/25 Dinner) Morphine Sulfate Injection (07/15/25 18:15) Nitroglycerin Sublingual (Ntrostat Subli (07/15/25 18:15) Morphine Sulfate Injection (07/15/25 18:15) Stat Ekg For Chest Pain (07/15/25 18:07) Notify Md Of Changes From Base (07/15/25 18:07) Supervisor Sign Shop For 24 Hours (07/15/25 18:07) Emergency Dysrhythmia Protocol (07/15/25 18:07) Rhythm Strips Once Every Shift (07/15/25 18:07) Oxygen By Nasal Cannula (07/15/25 18:07) Apixaban (Eliquis) (07/15/25 22:00) Metoclopramide Injection (Reglan Injecti (07/15/25 18:15) Pantoprazole (Protonix) (07/16/25 10:00) Vital Signs Date Time Temp Pulse Resp B/P (MAP) Pulse Ox O2 Delivery O2 Flow Rate FiO2 07/15/25 17:00 99.8 69 20 161/78 (105) 97 99.8 07/15/25 12:39 97 16 97 Room Air 07/15/25 12:39 98.7 72 16 114/61 (78) 97 98.7 07/15/25 11:24 97.8 71 18 147/53 96 97.8 Laboratory Tests Test 07/15/25 12:56 White Blood Count 5.5 10^3/uL (4.4-10.8) Medications Medications Dose Ordered Sig/Jake Route Start Time Stop Time Status Last Admin Dose Admin Acetaminophen/ Hydrocodone Bitart 1 tab ONCE ONCE PO 07/15/25 12:15 07/15/25 12:16 DC 07/15/25 12:59 1 TAB Assessment/Plan Assessment/Plan Martine Dodd is a 80-year-old female with morbid obesity presenting with acute right flank pain starting on July 15, brought in by ambulance. Acute Abdominal Pain Assessment: Patient presents with right flank pain of acute onset, likely representing biliary colic. CT abdomen demonstrates cholelithiasis supporting this diagnosis. Patient denies associated chest pain, fever, or chills. Plan: - Hospital admission for acute abdominal pain management - GI consultation for cholelithiasis - IV fluid administration - Pain medication administration - Clear liquid diet Cholelithiasis Assessment: CT abdomen confirms presence of gallstones. Plan: - GI consultation Morbid Obesity Assessment: Patient has morbid obesity requiring lifestyle modification. Plan: - Advised to exercise 3 times per week Chronic anticoagulation -full dose Lovenox Plan discussed with: Patient My Orders Orders - JORDAN SERRANO Procedure Category Date Status Time Admit ADMIT 07/15/25 Transmitted 18:07 Sodium Chloride 0.9% PHA 07/15/25 Logged 18:15 Temazepam (Restoril) PHA 07/15/25 Logged 18:15 Ondansetron Hcl PHA 07/15/25 Logged (Zofran) 18:15 Condition: Fair GRISELDA 07/15/25 In Process 18:07 Acetaminophen Tablet PHA 07/15/25 Logged (Tylenol Tablet) 18:15 Clear Liq Diet DIET 07/15/25 Transmitted Dinner Morphine Sulfate PHA 07/15/25 Logged Injection 18:15 Nitroglycerin PHA 07/15/25 Logged Sublingual (Ntrostat 18:15 Morphine Sulfate PHA 07/15/25 Logged Injection 18:15 Stat Ekg For Chest GRISELDA 07/15/25 In Process Pain 18:07 Notify Of Changes GRISELDA 07/15/25 In Process From Base 18:07 Supervisor Sign Shop For GRISELDA 07/15/25 In Process 24 Hours 18:07 Emergency Dysrhythmia GRISELDA 07/15/25 In Process Protocol 18:07 Rhythm Strips Once GRISELDA 07/15/25 In Process Every Shift 18:07 Oxygen By Nasal RT 07/15/25 Transmitted Cannula 18:07 Apixaban (Eliquis) PHA 07/15/25 Logged 22:00 Metoclopramide PHA 07/15/25 Verified Injection (Reglan 18:15 Pantoprazole PHA 07/16/25 Verified (Protonix) 10:00 Date of Service: Jul 15, 2025 Billing Provider: TAJ THACKER MD Common Visit Codes: [id number] INP/OBS CARE (MOD) JORDAN SERRANO MEDICAL TECHNOLOGIST CLINICAL Jul 15, 2025 18:13
[2025-07-15] MEDS: SODIUM CHLORIDE 0.9% 1,000 ML IV SCH (18:15)
[2025-07-15] MEDS ORDERED: TEMAZEPAM 15 MG CAP PO PRN (18:15)
[2025-07-15] MEDS ORDERED: MORPHINE SULFATE INJ 2 MG/ml SYRG IV PRN ×2 (18:15)
[2025-07-15] MEDS ORDERED: METOCLOPRAMIDE HCL 5MG/ml INJ 2ml VIAL IV PRN (18:15)
[2025-07-15] MEDS ORDERED: NITROGLYCERIN 0.4 MG SL TAB SL PRN (18:15)
[2025-07-15] MEDS ORDERED: ENOXAPARIN SOD 40 MG/0.4 ML SYRINGE SC SCH (18:15)
[2025-07-15] MEDS ORDERED: ONDANSETRON HCL 4 MG/2 ML VIAL IV PRN (18:15)
[2025-07-15 20:14] VITALS: BP 122/62; PULSE 76; RESP 19; TEMP 98.7; O2SAT 96
[2025-07-15 20:35] LABS: Urine Protein, UAD Negative (Negative)
[2025-07-15 20:48] LABS: Alanine Aminotransferase 30.0 U/L (7-40); Alkaline Phosphatase 111.0 U/L (46-116); Total Protein 7.2 g/dL (5.7-8.2)
[2025-07-15 20:49] LABS: Albumin 3.7 g/dL (3.2-4.8)
[2025-07-15 20:51] LABS: Bilirubin, Direct 0.6 mg/dL (<0.3); Bilirubin, Total 1.8 mg/dL (0.2-1.0)
[2025-07-15] MEDS ORDERED: APIXABAN 5 MG TAB PO SCH (22:00)
[2025-07-15 23:00] VITALS: BP 125/75; PULSE 70; RESP 17; TEMP 98; O2SAT 97
[2025-07-16] VITALS (7 sets, daily range): BP systolic 114–141; BP diastolic 55–82; PULSE 64–80; RESP 17–20; TEMP 98.1–98.5; O2SAT 95–98
[2025-07-16] MEDS: HYDROcodone-ACET 5/325MG TAB PO PRN (00:02)
[2025-07-16] MEDS: ENOXAPARIN SOD 100 MG/1 ML SYRINGE SC SCH (00:41)
[2025-07-16 06:51] LABS: Alanine Aminotransferase 23 U/L (7-40); Alkaline Phosphatase 85 U/L (46-116); Anion Gap 9 (5-15); BUN/Creatinine Ratio 14.7 (10.0-20.0); Blood Urea Nitrogen 11 mg/dL (9-23); Carbon Dioxide 27 mmol/L (20-31); Chloride 106 mmol/L (98-107); Glucose 89 mg/dL (74-106); Potassium 3.8 mmol/L (3.5-5.1); Sodium 142 mmol/L (136-145); Total Protein 5.9 g/dL (5.7-8.2)
[2025-07-16 06:52] LABS: Albumin 3.0 g/dL (3.2-4.8); Bilirubin, Total 2.3 mg/dL (0.2-1.0); Calcium 8.3 mg/dL (8.7-10.4); Lipase 55 U/L (12-53)
[2025-07-16 06:54] LABS: INR 1.15 (0.9-1.15); Prothrombin Time 12.0 sec (9.3-11.8)
--- NOTE | 2025-07-16 07:40 | DVHPN2 ---
Progress Note - Dictate Date Seen: Jul 16, 2025 Medical Necessity Reason Pt with a Central, PICC or Fol: No vital signs Vital Sign Date Time Temp Pulse Resp B/P (MAP) Pulse Ox O2 Delivery O2 Flow Rate FiO2 07/16/25 05:00 98.3 80 18 141/82 (101) 98 98.3 07/15/25 20:14 Room Air* 0 21 Total Intake and Output 07/15/25 07/15/25 07/16/25 15:00 23:00 07:00 Intake Total 150 ml 300 ml Balance 150 ml 300 ml medications Current Medications Medications Dose Ordered Sig/Jake Route Start Time Stop Time Status Last Admin Dose Admin Sodium Chloride 1,000 ml @ 60 mls/hr [id number] IV 07/15/25 18:15 Temazepam 15 mg QHSP PRN PO 07/15/25 18:15 Ondansetron HCl 4 mg Q4HP PRN IV 07/15/25 18:15 Acetaminophen 650 mg Q6HP PRN PO 07/15/25 18:15 Morphine Sulfate 2 mg Q4HPRN PRN IV 07/15/25 18:15 Enoxaparin Sodium 40 mg DAILY SC 07/15/25 18:15 UNV Nitroglycerin 0.4 mg Q5MINP PRN SL 07/15/25 18:15 Morphine Sulfate 2 mg Q30M PRN IV 07/15/25 18:15 Apixaban 5 mg BID PO 07/15/25 22:00 Cancel Metoclopramide HCl 10 mg Q6HPRN PRN IV 07/15/25 18:15 Hold Pantoprazole Sodium 40 mg DAILY IV 07/16/25 10:00 Acetaminophen/ Hydrocodone Bitart 1 tab Q4HPRN PRN PO 07/15/25 18:45 07/16/25 00:02 1 TAB Enoxaparin Sodium 140 mg Q12HR SC 07/15/25 22:00 07/16/25 00:41 140 MG objective General Appearance: alert, no distress HEENT: EOMI, PERRLA, normal external inspect of ears, no icterus, no nasal drainage Neck: no carotid bruit, no jugular venous distention (JVD), no lymphadenopathy Chest: normal thorax Respiratory: clear to auscultation, normal air movement Cardiovascular: regular rate and rhythm, no diastolic murmur, no jugular venous distention (JVD), no rub, no systolic murmur Abdominal: soft, no hepatomegaly, no mass, no splenomegaly, no tenderness Musculoskeletal: no joint tenderness, no swelling Extremities: normal pulses, no calf tenderness, no clubbing, no cyanosis, no edema Skin: no bruising, no jaundice, no rash Neurological: alert, No focal deficit laboratory and microbiology Laboratory Tests 07/16/25 05:47 07/15/25 12:56 Test 07/16/25 05:47 Range/Units Serum Glucose 89 74-106 mg/dL Problem List Acute Abdominal Pain Assessment: Patient presents with right flank pain of acute onset, likely representing biliary colic. CT abdomen demonstrates cholelithiasis supporting this diagnosis. Patient denies associated chest pain, fever, or chills. Plan: - Hospital admission for acute abdominal pain management - GI consultation for cholelithiasis - IV fluid administration - Pain medication administration - Clear liquid diet Cholelithiasis Assessment: CT abdomen confirms presence of gallstones. Plan: - GI consultation Morbid Obesity Assessment: Patient has morbid obesity requiring lifestyle modification. Plan: - Advised to exercise 3 times per week Chronic anticoagulation -full dose Lovenox Assessment/Plan Subjective Patient is awake and alert. Objective Patient was admitted for abdominal pain, most likely related to possible irritable bowel syndrome. Patient had episodes of diarrhea and constipation. Patient does have gallstones. Ultrasound is negative for acute cholecystitis. Patient has a history of rheumatic fever. She had a bilateral lower extremity edema. 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 She states she may have lymphedema as well. Plan Obtain BNP. Ultrasound venous Doppler to rule out DVT. Possible plan for diuretics if indicated. GI recommendations appreciated. Patient still complaining of abdominal pain. She did state she had a bowel movement today and it was harder than normal. Patient's urinalysis is negative for UTI. Plan discussed with: Patient, Other ANDREA LUNDBERG NP Jul 16, 2025 07:40
[2025-07-16] MEDS: ENOXAPARIN SOD 150 MG/1 ML SYRINGE SC SCH (08:53)
[2025-07-16] MEDS: PANTOPRAZOLE 40 MG/10 ML VIAL INJ IV SCH (08:53)
--- NOTE | 2025-07-16 11:10 | DVH ---
INDICATION: Pain; r/o cholecystitis TECHNIQUE: Multiple real-time sonographic images were obtained of the right upper quadrant. COMPARISON: None FINDINGS: The liver demonstrates heterogeneous echotexture without focal mass lesions. The liver measures 14 cm. There is no intrahepatic or extrahepatic ductal dilatation. The common duct measures 6 mm. Gallstones and gallbladder sludge. The gallbladder wall measures 3 mm and is within normal limits. Sonographic reportedly negative. The right kidney measures 10 cm. The right kidney is normal in contour, size, and shape. The echogenicity is normal. There is no hydronephrosis. The pancreas is not well visualized due to overlying bowel gas. IMPRESSION: Coarsened liver echotexture suggestive of chronic liver disease. Cholelithiasis without sonographic evidence of acute cholecystitis.
--- NOTE | 2025-07-16 11:47 | DVHCONRES ---
Date Seen: Jul 16, 2025 Resident Creating Document: ILIR CASON RESIDENT Referring Physician Nando CONTRERAS Reason for Consultation Acute abdominal pain History of Present Illness 80-year-old female presented to the ER with a chief complaint of right upper quadrant abdominal pain for the past 1 day. Patient reports getting out of the car and experiencing shooting pain in the right quadrant which radiated to the back along with nausea, denies fever, chills, vomiting, diarrhea or constipation at this time. Denies sick contacts or recent travel history. She is vitally stable, CT scan showed cholelithiasis. Liver ultrasound pending. Denies drinking or drug use. Past medical history: Questionable cirrhosis, URI, COVID, history of cholelithiasis, obesity Social history: Denies smoking: Drinking: Drug use Patient seen and examined. Negative Craven sign. Abdomen nondistended, nontender. Reports back pain. Family History: Patient reports no known family medical history. Allergies: Coded Allergies: Penicillins (Verified Allergy, Severe, 07/15/25) Home Meds Active Scripts Zinc Sulfate (Zinc) 220 Mg Cap, 220 MG PO Q24H for 15 Days, #15 CAP Prov:ELVA BOYCE MD 10/14/22 Cholecalciferol (Vitamin D3 Super Strength) 2,000 Unit Cap, 2000 UNIT PO Q24H for 15 Days, #15 CAP Prov:ELVA BOYCE MD 10/14/22 Ascorbic Acid (VITAMIN C TABLET) 500 Mg Tb, 1 TAB PO BID, #30 TAB Prov:ELVA BOYCE MD 10/14/22 Reported Medications Apixaban Base (ELIQUIS) 5 Mg Tab, 1 TAB PO BID 07/15/25 Current Medications Current Medications Medications (Trade) Dose Ordered Sig/Jake Route PRN Reason Start Time Stop Time Status Last Admin Sodium Chloride 1,000 ml @ 60 mls/hr [id number] IV 07/15/25 18:15 Temazepam (Restoril) 15 mg QHSP PRN PO FOR INSOMNIA 07/15/25 18:15 Ondansetron HCl (Zofran) 4 mg Q4HP PRN IV NAUSEA / VOMITING 07/15/25 18:15 Acetaminophen (Tylenol Tablet) 650 mg Q6HP PRN PO PAIN SCALE 1-3 OR TEMP>100.4 07/15/25 18:15 Morphine Sulfate 2 mg Q4HPRN PRN IV SEVERE PAIN (7-10 PAIN SCALE) 07/15/25 18:15 Enoxaparin Sodium (Lovenox) 40 mg DAILY SC 07/15/25 18:15 UNV Nitroglycerin (Ntrostat Sublingual) 0.4 mg Q5MINP PRN SL FOR CHEST PAIN 07/15/25 18:15 Morphine Sulfate 2 mg Q30M PRN IV FOR CHEST PAIN 07/15/25 18:15 Apixaban (Eliquis) 5 mg BID PO 07/15/25 22:00 Cancel Metoclopramide HCl (Reglan Injection) 10 mg Q6HPRN PRN IV NAUSEA / VOMITING 07/15/25 18:15 Hold Pantoprazole Sodium (Protonix) 40 mg DAILY IV 07/16/25 10:00 07/16/25 08:53 Acetaminophen/ Hydrocodone Bitart ([place] 5/325MG Tab) 1 tab Q4HPRN PRN PO MODERATE PAIN (4-6 PAIN SCALE) 07/15/25 18:45 07/16/25 00:02 Enoxaparin Sodium (Lovenox) 140 mg Q12HR SC 07/15/25 22:00 07/16/25 07:48 DC 07/16/25 00:41 Enoxaparin Sodium (Lovenox) 140 mg Q12HR SC 07/16/25 10:00 07/16/25 08:53 Review of Systems Eyes: No Pain, No Vision change, No Conjunctivae inflammation, No Eyelid inflammation, No Other, No Redness ENT: No Ear pain, No Ear discharge, No Nose pain, No Nose discharge, No Nose congestion, No Mouth pain, No Mouth swelling, No Throat pain, No Throat swelling, No Other Cardiovascular: No Chest Pain, No Palpitations, No Orthopnea, No PND, No Edema, No Lt Headedness, No Other Respiratory: No Cough, No Dry, No Shortness of breath, No SOB with exertion, No Wheezing, No Hemoptysis, No Pleuritic Pain, No Sputum, No Other Gastrointestinal: Reports right upper quadrant abdominal pain, nausea, No Abdominal Pain, No Diarrhea, No Constipation, No Melena, No Hematochezia, No Other Genitourinary: No Dysuria, No Frequency, No Incontinence, No Hematuria, No Retention, No Other Musculoskeletal: No other, No neck pain, No shoulder pain, No arm pain, No back pain, No hand pain, No leg pain, No foot pain Skin: No Rash, No Lesions, No Jaundice, No Bruising, No Other Vital Signs Vital Signs Date Time Temp Pulse Resp B/P (MAP) Pulse Ox O2 Delivery O2 Flow Rate FiO2 07/16/25 09:00 98.5 75 20 119/63 (81) 95 98.5 07/16/25 08:00 Room Air* 0 21 Physical Exam Morbidly obese female patient lying in the bed comfortably, well conversational, no acute distress General: Morbidly obese, afebrile, palor, mucosae are moist Cardiovascular: Regular S1 and S2. No murmurs, gallops or rubs. No JVD elevation. No pedal edema Respiratory: Normal B/L air entry on room air. Clear lung sounds on auscultation Abdomen: Soft, nontender, nondistended, normoactive bowel sounds, no rebound tenderness, no organomegaly, no masses. Negative Craven sign. Genitourinary: Deferred MSK/skin: Mobilizes 4 limbs. Skin is dry and warm Neurological: No motor, no sensitive deficits, normal speech. Pupils are isocoric and reactive. Psych/Mental Status: A/Ox3 Labs/Diagnostic Data Labs Test 07/16/25 05:47 07/15/25 20:14 07/15/25 12:56 Range/Units Prothrombin Time 12.0 H 9.3-11.8 sec Prothrombin Time INR 1.15 0.9-1.15 Sodium Level 142 136-145 mmol/L Potassium Level 3.8 3.5-5.1 mmol/L Chloride Level 106 98-107 mmol/L Carbon Dioxide Level 27 20-31 mmol/L Anion Gap 9 5-15 Blood Urea Nitrogen 11 9-23 mg/dL Creatinine 0.75 0.550-1.02 mg/dL Glomerular Filtration Rate Calc 81 >90 mL/min BUN/Creatinine Ratio 14.7 10.0-20.0 Serum Glucose 89 74-106 mg/dL Calcium Level 8.3 L 8.7-10.4 mg/dL Total Bilirubin 2.3 H 0.2-1.0 mg/dL Aspartate Amino Transferase (AST) 34 13-40 U/L Alanine Aminotransferase (ALT) 23 7-40 U/L Alkaline Phosphatase 85 46-116 U/L Total Protein 5.9 5.7-8.2 g/dL Albumin 3.0 L 3.2-4.8 g/dL Lipase 55 H 12-53 U/L Urine Color Yellow Yellow Urine Clarity Clear Clear Urine pH 7.0 5.0-9.0 Urine Specific [place] 1.023 1.001-1.035 Urine Protein Negative Negative Urine Ketones Negative Negative Urine Blood Negative Negative /uL Urine Nitrite Negative Negative Urine Bilirubin Negative Negative Urine Urobilinogen Normal Negative mg/dL Urine Leukocyte Esterase Negative Negative /uL Urine RBC 2 0 - 4 /hpf Urine Microscopic WBC 6 H 0-5 /HPF Urine Squamous Epithelial Cells Few <5 /hpf Urine Bacteria None seen None Seen /hpf Urine Mucus Few None Seen Urine Glucose Normal Normal mg/dL White Blood Count 5.5 4.4-10.8 10^3/uL Red Blood Count 4.02 4.0-5.20 10^6/uL Hemoglobin 13.2 12.2-16.2 g/dL Hematocrit 38.9 36.0-46.0 % Mean Corpuscular Volume 96.8 80.0-100.0 fL Mean Corpuscular Hemoglobin 32.8 H 28.0-32.0 pg Mean Corpuscular Hemoglobin Concent 33.9 32.0-36.0 g/dL Red Cell Distribution Width 14.3 11.8-14.3 % Platelet Count 104 L 140-450 10^3/uL Mean Platelet Volume 8.9 6.9-10.8 fL Neutrophils (%) (Auto) 79.4 37.0-80.0 % Lymphocytes (%) (Auto) 11.8 10.0-50.0 % Monocytes (%) (Auto) 7.1 0.0-12.0 % Eosinophils (%) (Auto) 0.6 0.0-7.0 % Basophils (%) (Auto) 1.1 0.0-2.0 % Neutrophils # (Auto) 4.4 1.6-8.6 10 ^3/uL Lymphocytes # (Auto) 0.7 0.4-5.4 10 ^3/uL Monocytes # (Auto) 0.4 0-1.3 10 ^3/uL Eosinophils # (Auto) 0 0-0.8 10 ^3/uL Basophils # (Auto) 0.1 0-0.2 10 ^3/uL Nucleated Red Blood Cells 0.0 % Direct Bilirubin 0.6 H <0.3 mg/dL Microbiology Date/Time Source Procedure Growth Status 07/15/25 20:14 Urine - Midstream Clean Catch Urine Culture - Preliminary Resulted Assessment Acute abdominal pain likely biliary colic History of cholelithiasis Ruled out cholecystitis Transaminitis ? Fatty liver/cirrhosis Cirrhosis-unspecified etiology Liver ultrasound shows coarsened liver echotexture suggestive of chronic liver disease. Cholelithiasis without sonographic evidence of acute cholecystitis. Lipase 55 Plan: Recommendation: No acute cholecystitis, negative Craven sign. Continue conservative management. Physical therapy recommended. Outpatient follow up with GI in 2-4 weeks. Cirrhosis compensated, meld score 10, we will continue to follow up. 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 Follow up with Hepatitis panel pending. Consider MRCP if bilirubin trended up Avoid fatty fried food. Counseled regarding weight loss and dietary habits. Plan discussed with the patient in which all questions answered Case discussed with Dr. Gordon Plan discussed with: Patient ILIR CASON RESIDENT Jul 16, 2025 11:47
[2025-07-16 14:20] LABS: Hepatitis B Surface Antigen Negative (Negative)
[2025-07-16] MEDS: POLYETHYLENE GLYCOL 17 GM PWDR PO ONE (14:29)
[2025-07-16 14:40] LABS: Hepatitis C Antibody Negative (Negative)
--- NOTE | 2025-07-16 18:29 | DVH ---
BILATERAL LOWER EXTREMITY VENOUS DUPLEX REASON FOR EXAMINATION: Bilateral lower extremity pain and edema. r/o dvt COMPARISON: None TECHNIQUE: Using real-time freeze-frame technique with a high-frequency transducer, multiple longitudinal and transverse sections were obtained. Simultaneous color flow and spectral Doppler imaging was performed. The deep veins from the popliteal fossa to the groin were evaluated. FINDINGS: There is good visualization of the deep venous system with no intraluminal filling defects identified. Normal venous compressibility is seen and there is flow augmentation. Color flow Doppler imaging is unremarkable. IMPRESSION: NO EVIDENCE OF DEEP VENOUS THROMBOSIS.
[2025-07-16] MEDS: ENOXAPARIN SOD 120 MG/0.8 ML SYRINGE SC SCH (23:06)
[2025-07-17] VITALS (7 sets, daily range): BP systolic 122–173; BP diastolic 67–99; PULSE 71–87; RESP 14–20; TEMP 97.2–99; O2SAT 94–97
[2025-07-17 07:42] LABS: Alanine Aminotransferase 24 U/L (7-40); Alkaline Phosphatase 90 U/L (46-116); Anion Gap 10 (5-15); BUN/Creatinine Ratio 8.5 (10.0-20.0); Calcium 9.1 mg/dL (8.7-10.4); Carbon Dioxide 26 mmol/L (20-31); Glucose 97 mg/dL (74-106); Potassium 4.1 mmol/L (3.5-5.1); Sodium 143 mmol/L (136-145); Total Protein 6.5 g/dL (5.7-8.2)
[2025-07-17 07:43] LABS: Albumin 3.3 g/dL (3.2-4.8); Bilirubin, Total 2.7 mg/dL (0.2-1.0); Blood Urea Nitrogen 7 mg/dL (9-23); Chloride 107 mmol/L (98-107)
[2025-07-17 10:28] LABS: Bilirubin, Direct 0.8 mg/dL (<0.3)
[2025-07-17 10:36] LABS: Lipase 34.0 U/L (12-53)
--- NOTE | 2025-07-17 14:04 | DVHPN2 ---
Progress Note - Dictate Date Seen: Jul 17, 2025 Medical Necessity Reason Pt with a Central, PICC or Fol: No vital signs Vital Sign Date Time Temp Pulse Resp B/P (MAP) Pulse Ox O2 Delivery O2 Flow Rate FiO2 07/17/25 09:00 98.2 71 18 155/70 (98) 96 98.2 07/17/25 08:00 Room Air* 0 21 Total Intake and Output 07/16/25 07/16/25 07/17/25 15:00 23:00 07:00 Intake Total 1080 ml 1100 ml 600 ml Balance 1080 ml 1100 ml 600 ml medications Current Medications Medications Dose Ordered Sig/Jake Route Start Time Stop Time Status Last Admin Dose Admin Sodium Chloride 1,000 ml @ 60 mls/hr [id number] IV 07/15/25 18:15 07/17/25 03:35 60 MLS/HR Temazepam 15 mg QHSP PRN PO 07/15/25 18:15 Ondansetron HCl 4 mg Q4HP PRN IV 07/15/25 18:15 Acetaminophen 650 mg Q6HP PRN PO 07/15/25 18:15 Morphine Sulfate 2 mg Q4HPRN PRN IV 07/15/25 18:15 Enoxaparin Sodium 40 mg DAILY SC 07/15/25 18:15 UNV Nitroglycerin 0.4 mg Q5MINP PRN SL 07/15/25 18:15 Morphine Sulfate 2 mg Q30M PRN IV 07/15/25 18:15 Apixaban 5 mg BID PO 07/15/25 22:00 Cancel Metoclopramide HCl 10 mg Q6HPRN PRN IV 07/15/25 18:15 Hold Pantoprazole Sodium 40 mg DAILY IV 07/16/25 10:00 07/17/25 09:16 40 MG Acetaminophen/ Hydrocodone Bitart 1 tab Q4HPRN PRN PO 07/15/25 18:45 07/16/25 00:02 1 TAB Enoxaparin Sodium 120 mg Q12HR SC 07/16/25 22:45 07/16/25 23:06 120 MG objective General Appearance: alert, no distress HEENT: EOMI, PERRLA, normal external inspect of ears, no icterus, no nasal drainage Neck: no carotid bruit, no jugular venous distention (JVD), no lymphadenopathy Chest: normal thorax Respiratory: clear to auscultation, normal air movement Cardiovascular: regular rate and rhythm, no diastolic murmur, no jugular venous distention (JVD), no rub, no systolic murmur Abdominal: soft, no hepatomegaly, no mass, no splenomegaly, no tenderness Musculoskeletal: no joint tenderness, no swelling Extremities: normal pulses, no calf tenderness, no clubbing, no cyanosis, no edema Skin: no bruising, no jaundice, no rash Neurological: alert, No focal deficit laboratory and microbiology Laboratory Tests 07/17/25 05:25 07/15/25 12:56 Test 07/17/25 05:25 Range/Units Serum Glucose 97 74-106 mg/dL Problem List Acute Abdominal Pain Assessment: Patient presents with right flank pain of acute onset, likely representing biliary colic. CT abdomen demonstrates cholelithiasis supporting this diagnosis. Patient denies associated chest pain, fever, or chills. Plan: - Hospital admission for acute abdominal pain management - GI consultation for cholelithiasis - IV fluid administration - Pain medication administration - Clear liquid diet Cholelithiasis Assessment: CT abdomen confirms presence of gallstones. Plan: - GI consultation Morbid Obesity Assessment: Patient has morbid obesity requiring lifestyle modification. Plan: - Advised to exercise 3 times per week Chronic anticoagulation -full dose Lovenox Assessment/Plan Subjective Patient is awake and alert. Objective Patient was admitted for abdominal pain. Patient had elevated lipase levels. BNP was slightly elevated. Patient states she may have lymphedema to her lower extremity. She has a history of DVT. Repeat ultrasound of lower extremities is negative for DVT. Patient is on chronic anticoagulation for history of DVT. 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 Patient was seen by GI. Patient has negative Craven sign. Plan MRCP is pending. Monitor for continued abdominal pain. Advance diet as tolerated per GI. Dietary Evaluation Review Comments: Nutrition Recommendation: 1) Advance diet as medically feasible 2) Monitor PO intake, lab values, weight trend, and I/O Expected Outcomes/Goals: Intake to meet >75% estimated needs FU 2-3 days Plan discussed with: Patient, Other ANDREA LUNDBERG NP Jul 17, 2025 14:04
--- NOTE | 2025-07-17 14:33 | DVH ---
CLINICAL HISTORY: bilirubinemia, r/o cholestasis TECHNIQUE: MRI and MRCP of the abdomen was performed without gadolinium. 3D reconstructed images were created under concurrent radiologist supervision and archived on the PACS system. COMPARISON: None FINDINGS: The adrenal glands and spleen are unremarkable. T2 hyperintense lesions in both kidneys are incompletely characterized due to lack of IV contrast. There are gallstones. The biliary tree is normal in caliber the common duct measuring up to 5 mm. No intraductal filling defects suggest a stone is seen. The liver is cirrhotic in morphology with nodular contour. The abdominal aorta is normal course and caliber. No enlarged lymph node is seen. No free fluid is present. IMPRESSION: Cholelithiasis. Normal caliber biliary ductal system. No intraductal filling defect to suggest cirrhosis. Cirrhosis.
--- NOTE | 2025-07-17 18:10 | DVHPN2 ---
Progress Note Date Seen: Jul 17, 2025 Resident Creating Document: ILIR CASON RESIDENT Medical Necessity Reason Pt with a Central, PICC or Fol: No Subjective Review of Systems 80-year-old female presented to the ER with a chief complaint of right upper quadrant abdominal pain for the past 1 day. Patient reports getting out of the car and experiencing shooting pain in the right quadrant which radiated to the back along with nausea, denies fever, chills, vomiting, diarrhea or constipation at this time. Denies sick contacts or recent travel history. She is vitally stable, CT scan showed cholelithiasis. Liver ultrasound pending. Denies drinking or drug use. Past medical history: Questionable cirrhosis, URI, COVID, history of cholelithiasis, obesity Social history: Denies smoking: Drinking: Drug use 07/16-Patient seen and examined. Negative Craven sign. Abdomen nondistended, nontender. Reports back pain. 07/17-Patient seen and examined. MRCP completed, unremarkable. No acute symptoms. Objective vital signs Vital Sign Date Time Temp Pulse Resp B/P (MAP) Pulse Ox O2 Delivery O2 Flow Rate FiO2 07/17/25 16:47 98.4 74 18 156/89 (111) 97 98.4 07/17/25 08:00 Room Air* 0 21 Total Intake and Output 07/16/25 07/16/25 07/17/25 15:00 23:00 07:00 Intake Total 1080 ml 1100 ml 600 ml Balance 1080 ml 1100 ml 600 ml medications Current Medications Medications Dose Ordered Sig/Jake Route Start Time Stop Time Status Last Admin Dose Admin Sodium Chloride 1,000 ml @ 60 mls/hr [id number] IV 07/15/25 18:15 07/17/25 16:54 60 MLS/HR Temazepam 15 mg QHSP PRN PO 07/15/25 18:15 Ondansetron HCl 4 mg Q4HP PRN IV 07/15/25 18:15 Acetaminophen 650 mg Q6HP PRN PO 07/15/25 18:15 Morphine Sulfate 2 mg Q4HPRN PRN IV 07/15/25 18:15 Enoxaparin Sodium 40 mg DAILY SC 07/15/25 18:15 UNV Nitroglycerin 0.4 mg Q5MINP PRN SL 07/15/25 18:15 Morphine Sulfate 2 mg Q30M PRN IV 07/15/25 18:15 Apixaban 5 mg BID PO 07/15/25 22:00 Cancel Metoclopramide HCl 10 mg Q6HPRN PRN IV 07/15/25 18:15 Hold Pantoprazole Sodium 40 mg DAILY IV 07/16/25 10:00 07/17/25 09:16 40 MG Acetaminophen/ Hydrocodone Bitart 1 tab Q4HPRN PRN PO 07/15/25 18:45 07/16/25 00:02 1 TAB Enoxaparin Sodium 120 mg Q12HR SC 07/16/25 22:45 07/16/25 23:06 120 MG Examination Morbidly obese female patient lying in the bed comfortably, well conversational, no acute distress General: Morbidly obese, afebrile, palor, mucosae are moist Cardiovascular: Regular S1 and S2. No murmurs, gallops or rubs. No JVD elevation. No pedal edema Respiratory: Normal B/L air entry on room air. Clear lung sounds on auscultation Abdomen: Soft, nontender, nondistended, normoactive bowel sounds, no rebound tenderness, no organomegaly, no masses. Negative Craven sign. Genitourinary: Deferred MSK/skin: Mobilizes 4 limbs. Skin is dry and warm Neurological: No motor, no sensitive deficits, normal speech. Pupils are isocoric and reactive. Psych/Mental Status: A/Ox3 laboratory and microbiology Laboratory Tests 07/17/25 05:25 07/15/25 12:56 Test 07/17/25 05:25 Range/Units Serum Glucose 97 74-106 mg/dL Microbiology Date/Time Source Procedure Growth Status 07/15/25 20:14 Urine - Midstream Clean Catch Urine Culture - Preliminary Resulted Labs and/or images reviewed: Labs reviewed by me, Image(s) reviewed by me Problem List/Assessment/Plan Problem List/Assessment/Plan Acute abdominal pain likely biliary colic Indirect hyperbilirubinemia, rule out hemolysis History of cholelithiasis Ruled out cholecystitis Ruled out choledocholithiasis Transaminitis ? 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 Cholelithiasis without sonographic evidence of acute cholecystitis. Lipase 55 MRCP shows Cholelithiasis. Normal caliber biliary ductal system. No intraductal filling defect to suggest cirrhosis. Plan: Recommendation: Given negative MRCP, patient feeling better, no abdominal pain. Recommend conservative management. Patient is stable to be discharged from GI standpoint. Outpatient follow up with GI in 2-4 weeks for further evaluation and management. Meanwhile, follow up with CK, LDH, haptoglobin, retic count and monitor CBC Cirrhosis compensated, meld score 10, we will continue to follow up. 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 Hepatitis panel negative Avoid fatty fried food. Counseled regarding weight loss and dietary habits. Plan discussed with the patient in which all questions answered Case discussed with Dr. Gordon Plan discussed with: Patient My Orders My Orders Orders - ILIR CASON Procedure Category Date Status Time Mrcp Mri MRI 07/17/25 Resulted 09:57 Dietary Evaluation Review Comments: Nutrition Recommendation: 1) Advance diet as medically feasible 2) Monitor PO intake, lab values, weight trend, and I/O Expected Outcomes/Goals: Intake to meet >75% estimated needs FU 2-3 days ILIR CASON Jul 17, 2025 18:10
[2025-07-17 21:49] LABS: Wright Stain Ready for Review
[2025-07-17] MEDS: ACETAMINOPHEN 325 MG TAB PO PRN (23:58)
[2025-07-18] VITALS (9 sets, daily range): BP systolic 122–159; BP diastolic 76–90; PULSE 72–95; RESP 16–20; TEMP 36.6; O2SAT 91–96
[2025-07-18 06:31] LABS: Hematocrit 34.8 % (36.0-46.0); Hemoglobin 11.9 g/dL (12.2-16.2); Mean Corpuscular Hemoglobin 32.7 pg (28.0-32.0); Mean Corpuscular Volume 96.0 fL (80.0-100.0); Nucleated Red Blood Cells % 0.2 %
[2025-07-18 07:11] LABS: Alanine Aminotransferase 22 U/L (7-40); Alkaline Phosphatase 84 U/L (46-116); Anion Gap 9 (5-15); BUN/Creatinine Ratio 8.3 (10.0-20.0); Calcium 8.8 mg/dL (8.7-10.4); Carbon Dioxide 27 mmol/L (20-31); Chloride 106 mmol/L (98-107); Glucose 84 mg/dL (74-106); Potassium 4.0 mmol/L (3.5-5.1); Sodium 142 mmol/L (136-145); Total Protein 6.1 g/dL (5.7-8.2)
[2025-07-18 07:22] LABS: Albumin 3.1 g/dL (3.2-4.8); Bilirubin, Total 2.4 mg/dL (0.2-1.0); Blood Urea Nitrogen 6 mg/dL (9-23)
--- NOTE | 2025-07-18 11:04 | DVHDS2 ---
Discharge Summary Date of Admission Jul 15, 2025 at 18:07 Date of Discharge: Jul 18, 2025 Labs/Diagnostic Data: Laboratory Results Test 07/18/25 05:37 07/17/25 19:09 07/17/25 05:25 07/16/25 13:19 White Blood Count 4.5 10^3/uL (4.4-10.8) Red Blood Count 3.63 10^6/uL (4.0-5.20) Hemoglobin 11.9 g/dL (12.2-16.2) Hematocrit 34.8 % (36.0-46.0) Mean Corpuscular Volume 96.0 fL (80.0-100.0) Mean Corpuscular Hemoglobin 32.7 pg (28.0-32.0) Mean Corpuscular Hemoglobin Concent 34.1 g/dL (32.0-36.0) Red Cell Distribution Width 14.0 % (11.8-14.3) Platelet Count 95 10^3/uL (140-450) Mean Platelet Volume 8.7 fL (6.9-10.8) Neutrophils (%) (Auto) 56.5 % (37.0-80.0) Lymphocytes (%) (Auto) 27.1 % (10.0-50.0) Monocytes (%) (Auto) 11.2 % (0.0-12.0) Eosinophils (%) (Auto) 4.4 % (0.0-7.0) Basophils (%) (Auto) 0.8 % (0.0-2.0) Neutrophils # (Auto) 2.6 10 ^3/uL (1.6-8.6) Lymphocytes # (Auto) 1.2 10 ^3/uL (0.4-5.4) Monocytes # (Auto) 0.5 10 ^3/uL (0-1.3) Eosinophils # (Auto) 0.2 10 ^3/uL (0-0.8) Basophils # (Auto) 0 10 ^3/uL (0-0.2) Nucleated Red Blood Cells 0.2 % Sodium Level 142 mmol/L (136-145) Potassium Level 4.0 mmol/L (3.5-5.1) Chloride Level 106 mmol/L (98-107) Carbon Dioxide Level 27 mmol/L (20-31) Anion Gap 9 (5-15) Blood Urea Nitrogen 6 mg/dL (9-23) Creatinine 0.72 mg/dL (0.550-1.02) Glomerular Filtration Rate Calc 85 mL/min (>90) BUN/Creatinine Ratio 8.3 (10.0-20.0) Serum Glucose 84 mg/dL (74-106) Calcium Level 8.8 mg/dL (8.7-10.4) Total Bilirubin 2.4 mg/dL (0.2-1.0) Aspartate Amino Transferase (AST) 31 U/L (13-40) Alanine Aminotransferase (ALT) 22 U/L (7-40) Alkaline Phosphatase 84 U/L (46-116) Total Protein 6.1 g/dL (5.7-8.2) Albumin 3.1 g/dL (3.2-4.8) Reticulocyte Count (auto) 1.26 % (0.5-1.5) Lactate Dehydrogenase 287 U/L (120-246) Creatine Kinase 138 U/L (34-145) Direct Bilirubin 0.8 mg/dL (<0.3) Lipase 34 U/L (12-53) Hepatitis B Surface Antigen Negative (Negative) Hepatitis B Surface Antibody Negative (Negative) Hepatitis B Core Total Antibody Negative (Negative) Hepatitis C Antibody Negative (Negative) Test 07/16/25 05:47 07/15/25 20:14 Prothrombin Time 12.0 sec (9.3-11.8) Prothrombin Time INR 1.15 (0.9-1.15) B-Type Natriuretic Peptide 181.45 pg/mL (0-100) Urine Color Yellow (Yellow) Urine Clarity Clear (Clear) Urine pH 7.0 (5.0-9.0) Urine Specific [place] 1.023 (1.001-1.035) Urine Protein Negative (Negative) Urine Ketones Negative (Negative) Urine Blood Negative /uL (Negative) Urine Nitrite Negative (Negative) Urine Bilirubin Negative (Negative) Urine Urobilinogen Normal mg/dL (Negative) Urine Leukocyte Esterase Negative /uL (Negative) Urine RBC 2 /hpf (0 - 4) Urine Microscopic WBC 6 /HPF (0-5) Urine Squamous Epithelial Cells Few /hpf (<5) Urine Bacteria None seen /hpf (None Seen) Urine Mucus Few (None Seen) Urine Glucose Normal mg/dL (Normal) Other Laboratory Tests 07/18/25 05:37 Brief Hx & Hospital Course: Martine Dodd is a 80-year-old female presenting to the clinic with complaints of right-sided flank pain that started on the . The patient describes right- sided flank pain that began on the . She is unsure if she might have hit something that could have caused the pain. She denies any chest pain, fever, or chills. Patient was admitted July 15, 2025 for bilateral lower extremity edema and abdominal pain most likely biliary colic. Acute cholecystitis was ruled out. Patient had MRCP which showed cholelithiasis. Patient was seen by GI. Ultrasound of venous Doppler to her lower extremities was done which was negative for DVT. Patient had a mildly elevated BNP level. She states she was diagnosed with lymphedema in the past. Patient states she lives out of her car. counseling services manager was consulted. Patient requested to return back to her prior living arrangements. Patient was instructed to eat a low fat diet with nonfried food and she was instructed to follow with her PCP in 1 week. There were no complaints or new complaints upon discharge, all questions and concerns were answered. Patient was advised to return to the ER or call 911 if any headaches, dizziness, shortness of breath, chest pain, bleeding, fevers, or worsening of medical condition. Patient/Family was counseled about treatment plan, medications, possible side effects, patient verbalized understanding. All questions were answered to the best of my ability. The patient symptoms improved and they are okay to be DC. Condition at Discharge: Stable Final Diagnosis/Problems List Biliary colic with gallstones-no cholecystitis Liver cirrhosis morbid obesity chronic lymphedema to bilateral lower extremities Discharge Disposition: Home Discharge Instruct/Medications Diet: Cardiac 2g Na,low cholest Activity: No Restrictions, As Tolerated Follow Up/Referral: pcp 1 week Scheduled Apixaban Base (Eliquis), 1 TAB PO BID, (Reported) Ascorbic Acid (Vitamin C Tablet), 1 TAB PO BID Cholecalciferol (Vitamin D3 Super Strength), 2,000 UNIT PO Q24H Zinc Sulfate (Zinc), 220 MG PO Q24H Discharge Statement: "Patient was advised to return to the ER or call 911 if any headaches, dizziness, shortness of breath, chest pain, abdominal pain, bleeding, fevers, or worsening of medical condition. Patient was counseled about treatment plan, medications, possible side effects, patientverbalized understanding. All questions were answered to the best of my ability. This discharge took greater then 30 minutes in planning, reviewing documentation, counseling the patient, and discussing with other team members." ASSESSMENT ASSESSMENT Assessment Biliary colic with gallstones-no cholecystitis Liver cirrhosis morbid obesity chronic lymphedema to bilateral lower extremities ANDREA LUNDBERG NP Jul 18, 2025 11:04
--- NOTE | 2025-07-18 17:48 | DVHPN2 ---
Progress Note Date Seen: Jul 18, 2025 Resident Creating Document: ILIR CASON RESIDENT Medical Necessity Reason Pt with a Central, PICC or Fol: No Subjective Patient reports: No new complaints, Feels better Objective vital signs Vital Sign Date Time Temp Pulse Resp B/P (MAP) Pulse Ox O2 Delivery O2 Flow Rate FiO2 07/18/25 17:00 98.4 75 20 143/81 (101) 95 98.4 07/18/25 08:00 Room Air* 0 21 Total Intake and Output 07/17/25 07/17/25 07/18/25 15:00 23:00 07:00 Intake Total 1200 ml 1400 ml 650 ml Output Total 1000 ml Balance 1200 ml 1400 ml -350 ml medications Current Medications Medications Dose Ordered Sig/Jake Route Start Time Stop Time Status Last Admin Dose Admin Sodium Chloride 1,000 ml @ 60 mls/hr [id number] IV 07/15/25 18:15 07/17/25 16:54 60 MLS/HR Temazepam 15 mg QHSP PRN PO 07/15/25 18:15 Ondansetron HCl 4 mg Q4HP PRN IV 07/15/25 18:15 Acetaminophen 650 mg Q6HP PRN PO 07/15/25 18:15 07/17/25 23:58 650 MG Morphine Sulfate 2 mg Q4HPRN PRN IV 07/15/25 18:15 Enoxaparin Sodium 40 mg DAILY SC 07/15/25 18:15 UNV Nitroglycerin 0.4 mg Q5MINP PRN SL 07/15/25 18:15 Morphine Sulfate 2 mg Q30M PRN IV 07/15/25 18:15 Apixaban 5 mg BID PO 07/15/25 22:00 Cancel Metoclopramide HCl 10 mg Q6HPRN PRN IV 07/15/25 18:15 Hold Pantoprazole Sodium 40 mg DAILY IV 07/16/25 10:00 07/18/25 11:29 40 MG Acetaminophen/ Hydrocodone Bitart 1 tab Q4HPRN PRN PO 07/15/25 18:45 07/16/25 00:02 1 TAB Enoxaparin Sodium 120 mg Q12HR SC 07/16/25 22:45 07/16/25 23:06 120 MG Examination Morbidly obese female patient lying in the bed comfortably, well conversational, no acute distress General: Morbidly obese, afebrile, palor, mucosae are moist Cardiovascular: Regular S1 and S2. No murmurs, gallops or rubs. No JVD elevation. No pedal edema Respiratory: Normal B/L air entry on room air. Clear lung sounds on auscultation Abdomen: Soft, nontender, nondistended, normoactive bowel sounds, no rebound tenderness, no organomegaly, no masses. Negative Craven sign. Genitourinary: Deferred MSK/skin: Mobilizes 4 limbs. Skin is dry and warm Neurological: No motor, no sensitive deficits, normal speech. Pupils are isocoric and reactive. Psych/Mental Status: A/Ox3 laboratory and microbiology Laboratory Tests 07/18/25 05:37 Test 07/18/25 05:37 Range/Units Serum Glucose 84 74-106 mg/dL Microbiology Date/Time Source Procedure Growth Status 07/15/25 20:14 Urine - Midstream Clean Catch Urine Culture - Final Complete Labs and/or images reviewed: Labs reviewed by me, Image(s) reviewed by me Problem List/Assessment/Plan Problem List/Assessment/Plan Acute abdominal pain likely biliary colic Indirect hyperbilirubinemia, rule out hemolysis History of cholelithiasis Ruled out cholecystitis Ruled out choledocholithiasis Transaminitis ? 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 Cholelithiasis without sonographic evidence of acute cholecystitis. Lipase 55 MRCP shows Cholelithiasis. Normal caliber biliary ductal system. No intraductal filling defect to suggest cirrhosis. Plan: Recommendation: Given negative MRCP, patient feeling better, no abdominal pain. Recommend conservative management. Patient is stable to be discharged from GI standpoint. Outpatient follow up with GI in 2-4 weeks for further evaluation and management. Elevated LDH, negative Charissa test Cirrhosis compensated, meld score 10, we will continue to follow up. 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 Hepatitis panel negative Avoid fatty fried food. Counseled regarding weight loss and dietary habits. Plan discussed with the patient in which all questions answered Case discussed with Dr. Gordon Plan discussed with: Patient My Orders My Orders Orders - ILIR CASON Procedure Category Date Status Time Haptoglobin LAB 07/17/25 In Process 18:09 Direct Charissa BBK 07/17/25 In Process 18:09 Indirect Charissa Test ARIN 07/17/25 In Process 18:09 Dietary Evaluation Review Comments: Nutrition Recommendation: 1) Advance diet as medically feasible 2) Monitor PO intake, lab values, weight trend, and I/O Expected Outcomes/Goals: Intake to meet >75% estimated needs FU 2-3 days ILIR CASON RESIDENT Jul 18, 2025 17:48
[2025-07-19 01:00] VITALS: BP 156/87; PULSE 71; RESP 19; TEMP 97.5; O2SAT 95
[2025-07-19 05:00] VITALS: BP 155/82; PULSE 76; RESP 18; TEMP 97.9; O2SAT 94
[2025-07-19 07:56] VITALS: RESP 18; O2SAT 95
[2025-07-19 09:00] VITALS: BP 145/106; PULSE 80; RESP 18; TEMP 98; O2SAT 94
--- NOTE | 2025-07-19 10:29 | DVHDS2 ---
Discharge Summary Date of Admission Jul 15, 2025 at 18:07 Date of Discharge: Jul 19, 2025 Admitting Diagnosis Abdominal pain and bilateral lower extremity edema Labs/Diagnostic Data: Laboratory Results Test 07/18/25 05:37 07/17/25 19:09 07/17/25 05:25 07/16/25 13:19 White Blood Count 4.5 10^3/uL (4.4-10.8) Red Blood Count 3.63 10^6/uL (4.0-5.20) Hemoglobin 11.9 g/dL (12.2-16.2) Hematocrit 34.8 % (36.0-46.0) Mean Corpuscular Volume 96.0 fL (80.0-100.0) Mean Corpuscular Hemoglobin 32.7 pg (28.0-32.0) Mean Corpuscular Hemoglobin Concent 34.1 g/dL (32.0-36.0) Red Cell Distribution Width 14.0 % (11.8-14.3) Platelet Count 95 10^3/uL (140-450) Mean Platelet Volume 8.7 fL (6.9-10.8) Neutrophils (%) (Auto) 56.5 % (37.0-80.0) Lymphocytes (%) (Auto) 27.1 % (10.0-50.0) Monocytes (%) (Auto) 11.2 % (0.0-12.0) Eosinophils (%) (Auto) 4.4 % (0.0-7.0) Basophils (%) (Auto) 0.8 % (0.0-2.0) Neutrophils # (Auto) 2.6 10 ^3/uL (1.6-8.6) Lymphocytes # (Auto) 1.2 10 ^3/uL (0.4-5.4) Monocytes # (Auto) 0.5 10 ^3/uL (0-1.3) Eosinophils # (Auto) 0.2 10 ^3/uL (0-0.8) Basophils # (Auto) 0 10 ^3/uL (0-0.2) Nucleated Red Blood Cells 0.2 % Sodium Level 142 mmol/L (136-145) Potassium Level 4.0 mmol/L (3.5-5.1) Chloride Level 106 mmol/L (98-107) Carbon Dioxide Level 27 mmol/L (20-31) Anion Gap 9 (5-15) Blood Urea Nitrogen 6 mg/dL (9-23) Creatinine 0.72 mg/dL (0.550-1.02) Glomerular Filtration Rate Calc 85 mL/min (>90) BUN/Creatinine Ratio 8.3 (10.0-20.0) Serum Glucose 84 mg/dL (74-106) Calcium Level 8.8 mg/dL (8.7-10.4) Total Bilirubin 2.4 mg/dL (0.2-1.0) Aspartate Amino Transferase (AST) 31 U/L (13-40) Alanine Aminotransferase (ALT) 22 U/L (7-40) Alkaline Phosphatase 84 U/L (46-116) Total Protein 6.1 g/dL (5.7-8.2) Albumin 3.1 g/dL (3.2-4.8) Reticulocyte Count (auto) 1.26 % (0.5-1.5) Haptoglobin 44 mg/dL (42-346) Lactate Dehydrogenase 287 U/L (120-246) Creatine Kinase 138 U/L (34-145) Direct Bilirubin 0.8 mg/dL (<0.3) Lipase 34 U/L (12-53) Hepatitis B Surface Antigen Negative (Negative) Hepatitis B Surface Antibody Negative (Negative) Hepatitis B Core Total Antibody Negative (Negative) Hepatitis C Antibody Negative (Negative) Test 07/16/25 05:47 07/15/25 20:14 Prothrombin Time 12.0 sec (9.3-11.8) Prothrombin Time INR 1.15 (0.9-1.15) B-Type Natriuretic Peptide 181.45 pg/mL (0-100) Urine Color Yellow (Yellow) Urine Clarity Clear (Clear) Urine pH 7.0 (5.0-9.0) Urine Specific [place] 1.023 (1.001-1.035) Urine Protein Negative (Negative) Urine Ketones Negative (Negative) Urine Blood Negative /uL (Negative) Urine Nitrite Negative (Negative) Urine Bilirubin Negative (Negative) Urine Urobilinogen Normal mg/dL (Negative) Urine Leukocyte Esterase Negative /uL (Negative) Urine RBC 2 /hpf (0 - 4) Urine Microscopic WBC 6 /HPF (0-5) Urine Squamous Epithelial Cells Few /hpf (<5) Urine Bacteria None seen /hpf (None Seen) Urine Mucus Few (None Seen) Urine Glucose Normal mg/dL (Normal) Other Laboratory Tests 07/18/25 05:37 Brief Hx & Hospital Course: Martine Dodd is a 80-year-old female presenting to the clinic with complaints of right-sided flank pain that started on the . The patient describes right- sided flank pain that began on the . She is unsure if she might have hit something that could have caused the pain. She denies any chest pain, fever, or chills. Patient was admitted July 15, 2025 for bilateral lower extremity edema and abdominal pain most likely biliary colic. Acute cholecystitis was ruled out. Patient had MRCP which showed cholelithiasis. Patient was seen by GI. Ultrasound of venous Doppler to her lower extremities was done which was negative for DVT. Patient had a mildly elevated BNP level. She states she was diagnosed with lymphedema in the past. Patient states she lives out of her car. shipping services sales representative was consulted. Patient requested to return back to her prior living arrangements. Patient was instructed to eat a low fat diet with nonfried food and she was instructed to follow with her PCP in 1 week. There were no complaints or new complaints upon discharge, all questions and concerns were answered. Patient was advised to return to the ER or call 911 if any headaches, dizziness, shortness of breath, chest pain, bleeding, fevers, or worsening of medical condition. Patient/Family was counseled about treatment plan, medications, possible side effects, patient verbalized understanding. All questions were answered to the best of my ability. The patient symptoms improved and they are okay to be DC. Condition at Discharge: Stable Final Diagnosis/Problems List Biliary colic with gallstones-no cholecystitis Liver cirrhosis morbid obesity chronic lymphedema to bilateral lower extremities Discharge Disposition: Home SNF Discharge Physician in charge at time of: Dr. Quarles Will this Physician continue t: No Discharge Instruct/Medications Diet: Cardiac 2g Na,low cholest Activity: No Restrictions, As Tolerated Follow Up/Referral: pcp 1 week Medications: As prescribed Scheduled Apixaban Base (Eliquis), 1 TAB PO BID, (Reported) Ascorbic Acid (Vitamin C Tablet), 1 TAB PO BID Cholecalciferol (Vitamin D3 Super Strength), 2,000 UNIT PO Q24H Zinc Sulfate (Zinc), 220 MG PO Q24H Discharge Statement: "Patient was advised to return to the ER or call 911 if any headaches, dizziness, shortness of breath, chest pain, abdominal pain, bleeding, fevers, or worsening of medical condition. Patient was counseled about treatment plan, medications, possible side effects, patientverbalized understanding. All questions were answered to the best of my ability. This discharge took greater then 30 minutes in planning, reviewing documentation, counseling the patient, and discussing with other team members." ASSESSMENT ASSESSMENT Hospital Course Martine Dodd is a 80-year-old female presenting to the clinic with complaints of right-sided flank pain that started on the . The patient describes right- sided flank pain that began on the . She is unsure if she might have hit something that could have caused the pain. She denies any chest pain, fever, or chills. Patient was admitted July 15, 2025 for bilateral lower extremity edema and abdominal pain most likely biliary colic. Acute cholecystitis was ruled out. Patient had MRCP which showed cholelithiasis. Patient was seen by GI. Ultrasound of venous Doppler to her lower extremities was done which was negative for DVT. Patient had a mildly elevated BNP level. She states she was diagnosed with lymphedema in the past. Patient states she lives out of her car. shipping services sales representative was consulted. Patient requested to return back to her prior living arrangements. Patient was instructed to eat a low fat diet with nonfried food and she was instructed to follow with her PCP in 1 week. There were no complaints or new complaints upon discharge, all questions and concerns were answered. Patient was advised to return to the ER or call 911 if any headaches, dizziness, shortness of breath, chest pain, bleeding, fevers, or worsening of medical condition. Patient/Family was counseled about treatment plan, medications, possible side effects, patient verbalized understanding. All questions were answered to the best of my ability. The patient symptoms improved and they are okay to be DC. Assessment Biliary colic with gallstones-no cholecystitis Liver cirrhosis morbid obesity chronic lymphedema to bilateral lower extremities ANDREA LUNDBERG NP Jul 19, 2025 10:29
--- NOTE | 2025-07-19 10:34 | DVHPN2 ---
Progress Note - Dictate Date Seen: Jul 18, 2025 Medical Necessity Reason Pt with a Central, PICC or Fol: No Subjective Martine Dodd is a 80-year-old female presenting to the clinic with complaints of right-sided flank pain that started on the . The patient describes right- sided flank pain that began on the . She is unsure if she might have hit something that could have caused the pain. She denies any chest pain, fever, or chills. Patient was admitted July 15, 2025 for bilateral lower extremity edema and abdominal pain most likely biliary colic. Acute cholecystitis was ruled out. Patient had MRCP which showed cholelithiasis. Patient was seen by GI. Ultrasound of venous Doppler to her lower extremities was done which was negative for DVT. Patient had a mildly elevated BNP level. She states she was diagnosed with lymphedema in the past. Patient states she lives out of her car. director of housing and energy services was consulted. Patient requested to return back to her prior living arrangements. Patient was instructed to eat a low fat diet with nonfried food and she was instructed to follow with her PCP in 1 week. There were no complaints or new complaints upon discharge, all questions and concerns were answered. Patient was advised to return to the ER or call 911 if any headaches, dizziness, shortness of breath, chest pain, bleeding, fevers, or worsening of medical condition. Patient/Family was counseled about treatment plan, medications, possible side effects, patient verbalized understanding. All questions were answered to the best of my ability. The patient symptoms improved and they are okay to be DC. Discharge held due to ride not available to pick patient up until tomorrow. vital signs Vital Sign Date Time Temp Pulse Resp B/P (MAP) Pulse Ox O2 Delivery O2 Flow Rate FiO2 07/19/25 09:00 98.0 80 18 145/106 (119) 94 98.0 07/19/25 07:56 Room Air* 0 21 Total Intake and Output 07/18/25 07/18/25 07/19/25 15:00 23:00 07:00 Intake Total 960 ml 1700 ml 400 ml Balance 960 ml 1700 ml 400 ml medications Current Medications Medications Dose Ordered Sig/Jake Route Start Time Stop Time Status Last Admin Dose Admin Sodium Chloride 1,000 ml @ 60 mls/hr [id number] IV 07/15/25 18:15 07/17/25 16:54 60 MLS/HR Temazepam 15 mg QHSP PRN PO 07/15/25 18:15 Ondansetron HCl 4 mg Q4HP PRN IV 07/15/25 18:15 Acetaminophen 650 mg Q6HP PRN PO 07/15/25 18:15 07/17/25 23:58 650 MG Morphine Sulfate 2 mg Q4HPRN PRN IV 07/15/25 18:15 Enoxaparin Sodium 40 mg DAILY SC 07/15/25 18:15 UNV Nitroglycerin 0.4 mg Q5MINP PRN SL 07/15/25 18:15 Morphine Sulfate 2 mg Q30M PRN IV 07/15/25 18:15 Apixaban 5 mg BID PO 07/15/25 22:00 Cancel Metoclopramide HCl 10 mg Q6HPRN PRN IV 07/15/25 18:15 Hold Pantoprazole Sodium 40 mg DAILY IV 07/16/25 10:00 07/18/25 11:29 40 MG Acetaminophen/ Hydrocodone Bitart 1 tab Q4HPRN PRN PO 07/15/25 18:45 07/16/25 00:02 1 TAB Enoxaparin Sodium 120 mg Q12HR SC 07/16/25 22:45 07/16/25 23:06 120 MG objective General Appearance: alert, no distress HEENT: EOMI, PERRLA, normal external inspect of ears, no icterus, no nasal drainage Neck: no carotid bruit, no jugular venous distention (JVD), no lymphadenopathy Chest: normal thorax Respiratory: clear to auscultation, normal air movement Cardiovascular: regular rate and rhythm, no diastolic murmur, no jugular venous distention (JVD), no rub, no systolic murmur Abdominal: soft, no hepatomegaly, no mass, no splenomegaly, no tenderness Musculoskeletal: no joint tenderness, no swelling Extremities: normal pulses, no calf tenderness, no clubbing, no cyanosis, no edema Skin: no bruising, no jaundice, no rash Neurological: alert, No focal deficit laboratory and microbiology Laboratory Tests 07/18/25 05:37 Test 07/18/25 05:37 Range/Units Serum Glucose 84 74-106 mg/dL Problem List Acute Abdominal Pain Assessment: Patient presents with right flank pain of acute onset, likely representing biliary colic. CT abdomen demonstrates cholelithiasis supporting this diagnosis. Patient denies associated chest pain, fever, or chills. Plan: - Hospital admission for acute abdominal pain management - GI consultation for cholelithiasis - IV fluid administration - Pain medication administration - Clear liquid diet Cholelithiasis Assessment: CT abdomen confirms presence of gallstones. Plan: - GI consultation Morbid Obesity Assessment: Patient has morbid obesity requiring lifestyle modification. Plan: - Advised to exercise 3 times per week Chronic anticoagulation -full dose Lovenox Assessment/Plan Subjective Patient is awake and alert. Objective Patient was admitted for abdominal pain. Patient had elevated lipase levels. BNP was slightly elevated. Chronic lymphedema to her lower extremity. She has a history of DVT. Repeat ultrasound of lower extremities is negative for DVT. Patient is on chronic anticoagulation for history of DVT. 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 Patient was seen by GI. Patient has negative Craven sign. Feeling better. Patient is aware will follow up outpatient for further liver work up. She states she is currently living out of her car. She states social media strategist saw her and she is ok to return to her car. She states she is actively looking at rooms for rent. Plan MRCP shows gallstones. Tolerating diet. Clear for discharge however was informed late in the night that ride cannot come until tomorrow. Dietary Evaluation Review Comments: Nutrition Recommendation: 1) Advance diet as medically feasible 2) Monitor PO intake, lab values, weight trend, and I/O Expected Outcomes/Goals: Intake to meet >75% estimated needs FU 2-3 days Plan discussed with: Patient ANDREA LUNDBERG [employer] ENGINE[employer] Jul 19, 2025 10:34
[2025-07-19 13:00] VITALS: BP 162/90; PULSE 77; RESP 17; TEMP 98.6; O2SAT 95
--- NOTE | 2025-07-19 14:31 | DVHPN2 ---
Progress Note Date Seen: Jul 19, 2025 Resident Creating Document: ILIR CASON RESIDENT Medical Necessity Reason Pt with a Central, PICC or Fol: No Subjective Patient reports: No new complaints, Feels better Objective vital signs Vital Sign Date Time Temp Pulse Resp B/P (MAP) Pulse Ox O2 Delivery O2 Flow Rate FiO2 07/19/25 09:00 98.0 80 18 145/106 (119) 94 98.0 07/19/25 07:56 Room Air* 0 21 Total Intake and Output 07/18/25 07/18/25 07/19/25 15:00 23:00 07:00 Intake Total 960 ml 1700 ml 400 ml Balance 960 ml 1700 ml 400 ml medications Current Medications Medications Dose Ordered Sig/Jake Route Start Time Stop Time Status Last Admin Dose Admin Sodium Chloride 1,000 ml @ 60 mls/hr [id number] IV 07/15/25 18:15 07/17/25 16:54 60 MLS/HR Temazepam 15 mg QHSP PRN PO 07/15/25 18:15 Ondansetron HCl 4 mg Q4HP PRN IV 07/15/25 18:15 Acetaminophen 650 mg Q6HP PRN PO 07/15/25 18:15 07/17/25 23:58 650 MG Morphine Sulfate 2 mg Q4HPRN PRN IV 07/15/25 18:15 Enoxaparin Sodium 40 mg DAILY SC 07/15/25 18:15 UNV Nitroglycerin 0.4 mg Q5MINP PRN SL 07/15/25 18:15 Morphine Sulfate 2 mg Q30M PRN IV 07/15/25 18:15 Apixaban 5 mg BID PO 07/15/25 22:00 Cancel Metoclopramide HCl 10 mg Q6HPRN PRN IV 07/15/25 18:15 Hold Pantoprazole Sodium 40 mg DAILY IV 07/16/25 10:00 07/18/25 11:29 40 MG Acetaminophen/ Hydrocodone Bitart 1 tab Q4HPRN PRN PO 07/15/25 18:45 07/16/25 00:02 1 TAB Enoxaparin Sodium 120 mg Q12HR SC 07/16/25 22:45 07/16/25 23:06 120 MG Examination Morbidly obese female patient lying in the bed comfortably, well conversational, no acute distress General: Morbidly obese, afebrile, palor, mucosae are moist Cardiovascular: Regular S1 and S2. No murmurs, gallops or rubs. No JVD elevation. No pedal edema Respiratory: Normal B/L air entry on room air. Clear lung sounds on auscultation Abdomen: Soft, nontender, nondistended, normoactive bowel sounds, no rebound tenderness, no organomegaly, no masses. Negative Craven sign. Genitourinary: Deferred MSK/skin: Mobilizes 4 limbs. Skin is dry and warm Neurological: No motor, no sensitive deficits, normal speech. Pupils are isocoric and reactive. Psych/Mental Status: A/Ox3 laboratory and microbiology Laboratory Tests 07/18/25 05:37 Test 07/18/25 05:37 Range/Units Serum Glucose 84 74-106 mg/dL Microbiology Date/Time Source Procedure Growth Status 07/15/25 20:14 Urine - Midstream Clean Catch Urine Culture - Final Complete Labs and/or images reviewed: Labs reviewed by me, Image(s) reviewed by me Problem List/Assessment/Plan Problem List/Assessment/Plan Acute abdominal pain likely biliary colic Indirect hyperbilirubinemia, ruled out hemolysis History of cholelithiasis Ruled out cholecystitis Ruled out choledocholithiasis Transaminitis ? 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 Cholelithiasis without sonographic evidence of acute cholecystitis. Lipase 55 MRCP shows Cholelithiasis. Normal caliber biliary ductal system. No intraductal filling defect to suggest cirrhosis. Plan: Recommendation: Given negative MRCP, patient feeling better, no abdominal pain. Recommend conservative management. Patient is stable to be discharged from GI standpoint. Outpatient follow up with GI in 2-4 weeks for further evaluation and management. Elevated LDH, negative Charissa test. Not suggestive of hemolysis Cirrhosis compensated, meld score 10, we will continue to follow up. 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 Hepatitis panel negative Avoid fatty fried food. Counseled regarding weight loss and dietary habits. Plan discussed with the patient in which all questions answered Case discussed with Dr. Gordon Plan discussed with: Patient Dietary Evaluation Review Comments: Nutrition Recommendation: 1) Advance diet as medically feasible 2) Monitor PO intake, lab values, weight trend, and I/O Expected Outcomes/Goals: Intake to meet >75% estimated needs FU 2-3 days ILIR CASON RESIDENT Jul 19, 2025 14:31
[2025-07-19 17:00] VITALS: BP_DIAS 132; PULSE 80; RESP 18; TEMP 97.9; O2SAT 98
== END 2025-07-19 17:50 | disposition home or self-care (01) | DRG 445 ==
LOC: EDBD 11:19 → ER 11:19 → OVERFLOW 18:07 → WEST WING 23:00
PROVIDERS: ADMIT Nurse Practitioner Family; ATTEND Nurse Practitioner Family
DX: K80.20 Calculus of gallbladder without cholecystitis without obstruction (principal); Z59.02 Unsheltered homelessness; Z79.01 Long term (current) use of anticoagulants; E66.01 Morbid (severe) obesity due to excess calories; K74.60 Unspecified cirrhosis of liver; Z68.43 Body mass index [BMI] 50.0-59.9, adult; E80.6 Other disorders of bilirubin metabolism; R74.01 Elevation of levels of liver transaminase levels; I89.0 Lymphedema, not elsewhere classified; Z88.0 Allergy status to penicillin; Z79.899 Other long term (current) drug therapy
CPT/HCPCS: 36415; 74176; 74181; 76705; 80048; 80053; 80076; 81001; 82248; 82550; 83010; 83615; 83690; 83880; 85025; 85045; 85610; 86706; 86803; 86880; 86885; 87086; 87340; 93970; 97163; G0378; J2470